=== PATIENT | female | born 1935 | race Caucasian/White ===

== ENCOUNTER → 2019-10-02 | Outpatient (CLI) | payer MEDICAID, SELFPAY | PROVIDERS: Family Provider Family Medicine; Visit Provider Internal Medicine Hematology & Oncology | DX: Z08 Encounter for follow-up examination after completed treatment for malignant neoplasm (principal); Z85.038 Personal history of other malignant neoplasm of large intestine; R91.8 Other nonspecific abnormal finding of lung field; Z90.49 Acquired absence of other specified parts of digestive tract; Z92.21 Personal history of antineoplastic chemotherapy | CPT/HCPCS: 80053; 82378; 82607; 82728; 83540; 83550; 85025; 85045; 99213 ==

== ENCOUNTER 2019-10-21 14:09 | Outpatient (RCR) | payer MEDICAID, SELFPAY ==
[2019-10-21 15:28] LABS: Ferritin 16 ng/mL (15-150); Iron 14 ug/dL (37-145); Total Iron Binding Capacity 344 mg/dL; Unsaturated Iron Binding 330 ug/dL (112-347)
[2019-10-21 15:43] LABS: Vitamin B12 454 pg/mL (232-1245)
[2019-10-21 15:48] LABS: Basophils # 0.1 10^3/uL (0.0-0.1); Basophils % 0.8 %; Eosinophils # 0.5 10^3/uL (0.0-0.8); Hematocrit 23.3 % (37.0-47.0); Lymphocytes % 17.2 %; Mean Corpuscular Hemoglobin 21.6 pg (28.0-34.0); Mean Corpuscular Volume 79.8 fL (81-99); Mean Platelet Volume 9.9 fL (7.4-10.4); Monocytes # 1.1 10^3/uL (0.2-0.9); Monocytes % 9.4 %; Neutrophils % 68.1 %; Nucleated Red Blood Cells % 0 %; Platelet Count 542 10^3/cmm (130-400); Red Blood Count 2.92 10^6/uL (4.1-5.3); Red Cell Distribution Width 15.3 % (12.1-15.1); White Blood Count 11.8 10^3/uL (4.0-10.0)
[2019-10-21 15:54] LABS: Hemoglobin 6.3 g/dL (11.5-15.3)
[2019-10-21 15:55] LABS: Folate Level 7.6 ng/mL (4.8-37.3)
[2019-10-22] VITALS (11 sets, daily range): BP systolic 90–122; BP diastolic 45–62; PULSE 67–76; RESP 18; TEMP 36.6–37.3; O2SAT 97–100
== END 2019-11-07 17:00 | disposition home or self-care (01) ==
LOC: ONCMED 14:09
PROVIDERS: Family Provider Family Medicine; Visit Provider Internal Medicine Hematology & Oncology
DX: D50.9 Iron deficiency anemia, unspecified (principal); Z85.038 Personal history of other malignant neoplasm of large intestine; Z90.49 Acquired absence of other specified parts of digestive tract; Z87.01 Personal history of pneumonia (recurrent); Z79.899 Other long term (current) drug therapy; Z79.82 Long term (current) use of aspirin
CPT/HCPCS: 36415; 36430; 82607; 82728; 82746; 83540; 83550; 85025; 85045

== ENCOUNTER 2019-11-06 05:40 | Outpatient (RCR) | payer MEDICAID, SELFPAY ==
--- NOTE | 2019-10-23 10:11 | ONC FU_ITS ---
Dr. Love follow up note Patient: Nayeli Ferreira Unit #: [id number]: 1935 Dicatated By: Rena Love M.D.Date of Visit:Oct 23, 2019 Onc Med Follow-up/Prog Note History of Present Illness: Mrs. Nayeli Ferreira is a 84-year-old female recently diagnosed with adenocarcinoma of ascending colon, underwent right hemicolectomy on 10/12/2017 final pathology report showed infiltrating adenocarcinoma low-grade, tumor penetrating through muscularis propria into serosal connective tissue, 3 out of 16 lymph nodes were removed showed metastatic disease surgical margins were clear. Patient tolerated procedure very well CT PET scan done on 11/10/2017 showed multiple tree in bud type infiltrates in the right lower lobe and right middle lobe of lung with mild FDG activity early metastatic disease cannot be excluded. chest x-ray done earlier Showed resolving pneumonia/pneumonitis offered her treatment with Xeloda. She was scheduled to start a reduced dose of 1000mg twice daily 14 out of 21 days for 8 cycles. which she Finished on 06/06/2018 She does live in a residual care assistance arrangement, but has excellent support. Follow-up CT PET scan done on 09/27/2019 showed FDG positive bilateral pulmonary nodules seen on prior studies on 07/27/2018 are resolved or nearly resolved. With a minimal or negligible FDG activity. Mediastinal lymph nodes are below early improved. The index node and right paratracheal area measures 1.1 cm with SUV of 4.5. Other mediastinal lymph nodes are unchanged in bilateral hilar, prevascular and subcarinal. These remain FDG positive, consistent with active malignancy. Right supraclavicular lymph node is unchanged with a minimal FDG uptake is likely reactive. Required blood transfusion for hemoglobin 6.3 g on 10/21/2019. Came for follow-up, denies any specific complaint, tolerated blood transfusion well without any problem. Fever or chills no nausea vomiting no chest pain no shortness of breath no melena or hematochezia patient is on oral iron. No abdominal pain, no jaundice. Medications: Albuterol Sulfate HFA 1 (108 (90 base) mcg/act) Aerosol, solution Inhalation daily, Aspirin 1 (81 mg) Tablet Oral daily, Carvedilol 1 (3.125 mg) Tablet Oral b.i.d., Cetirizine HCl 1 (10 mg) Tablet Oral at bedtime, Colace 1 (100 mg) Capsule Oral b.i.d., Flonase 1 spray(s) (of 50 mcg/act) Suspension Nasal daily, Levothyroxine Sodium 1 (75 mcg) Tablet Oral daily, Simvastatin 1 (20 mg) Tablet Oral at bedtime, Vitamin C 1 Tablet, chewable Oral daily PRN Allergies: No Known Allergies. Review of Systems: Review of Systems is not available for this patient. Vital Signs: Performed on Oct 23, 2019 09:41 Height - 52.00 in Weight - 130.6 lbs (HIGH) BSA - 1.40 sq.m BMI - 33.96 (HIGH) Temperature - 98.4 F Pulse - 80 /min Respiration - 20 /min BP - 119/60 mm(hg) O2 Sat - 98 % Pain - 0 Performance Status: 1 - No physically strenuous activity, but ambulatory and able to carry out light or sedentary work (e.g. office work, light house work). (ECOG) Physical Examination: ENMT - No oral exudates, ulcers, masses, thrush or mucositis. Oropharynx clear. Tongue normal, Respiratory - Lungs are clear to auscultation without rhonchi or wheezing, Cardiovascular - Regular rate and rhythm of heart, Abdomen - Non-tender, non-distended, Good bowel sounds. No guarding or rebound tenderness. No pulsatile masses, Extremities - no edema. Lab/Imaging: Test performed on Oct 21, 2019 09:45 Ferritin 16 ng/mL Folate 7.6 ng/mL Vitamin B12 454 pg/mL % Iron Saturation 4.0 % Iron, Total 14 mcg/dL TIBC 344 mcg/dL Reticulocyte Count 2.6300 % WBC 11.8 10^9/L RBC 2.92 10^12/L HGB 6.3 g/dL HCT 23.3 % MCV 79.8 fl MCH 21.6 pg MCHC 27.0 g/dL RDW 15.3 % Platelet Count 542 10^9/L MPV 9.9 fL Neutrophils (Gran) 8.0 10^9/L Lymphocytes 2.0 10^9/L Monocytes 1.1 10^9/L Eosinophils 0.5 10^9/L Basophils 0.1 10^9/L Neutrophil % 4.0 % Manual Lymphocytes 17.2 % Manual Monocytes 9.4 % Manual Eosinophils 4.0 % Manual Basophils 0.8 % NRBCs 0.0 /100 WBC Test performed on Oct 02, 2019 12:29 Sodium 137 mmol/L Potassium 4.3 mmol/L Chloride 102 mmol/L CO2 21 mmol/L UIBC 307 ug/dL Anion Gap 18.3 BUN 20 mg/dL Creatinine 1.0 mg/dL Cr Clearance (Est) 37.4800 mL/min Glucose 132 mg/dl Calcium 9.0 mg/dL Protein, Total 6.4 g/dL Albumin 4.1 g/dL Globulin 2.3 gm/dL Bilirubin, Total 0.2 mg/dL ALT (SGPT) 7 U/L AST (SGOT) 20 U/L Alkaline Phosphatase 90 U/L Lymphocyte % 20.3 % Monocyte % 9.9 % Eosinophil % 3.7 % Basophils % 0.8 % CEA 2.1 ng/mL Impression: Infiltrating adenocarcinoma involving ascending colon per colonoscopy done on 09/28/2017 status post right hemicolectomy done on 10/12/2017 final path report showed infiltrating adenocarcinoma, low-grade tumor penetrating through muscularis propria into serosal connective tissue 7.5 x 6.5 x 1.5 cm T3 Positive small lymphovascular space invasion. Clear surgical margins 3 lymph node out of 16 removed were positive for metastatic disease N1 MSI/MMRD status showed normal expression CT scan of chest abdomen pelvis done on 09/26/2017 showed multilobular nodular airspace disease suspicious for metastasis. Hepatic and splenic granulomatous CT PET scan done on 11/10/2017 showed multiple tree in bud type infiltrates in the right lower lobe and right middle lobe of lung with mild FDG activity early metastatic disease cannot be excluded but patient has history of resolving pneumonia per chest x-ray Discussed with patient regarding her labs and CT PET scan and CBC CMP within normal limit CEA is 0.9 Clinically, she is doing reasonably well considering her age and comorbid conditions. Her CT PET scan shows abnormality in right lower and middle lobe of lung and chest x-ray done earlier showed resolving pneumonia/pneumonitis said these abnormality could be due to that. And her MSI/MMR D status shows normal expression so r adjuvant therapy with oral Xeloda was offerd on 12/07/17 We will also modify her dose as per her performance status, advanced age and comorbid condition. we will prescribe Xeloda 750 mg/m??? by mouth twice a day for 2 weeks on 1 week off and repeat cycle every 21 days ???8 cycles. Started adjuvant chemotherapy with oral Xeloda on 12/07/2017 and plan to give her 2 weeks on 1 week off ???8 cycle And finished her adjuvant chemotherapy on 06/06/2018 Follow-up CT PET scan done on 07/27/2018 showed now more definitive hypermetabolic bilateral pulmonary nodules, strongly consistent with metastatic disease. There are more prominent in the right upper lobe, right lower lobe and left lower lobe , additionally, there is a malignant activity in multiple mediastinal lymph nodes, inferior right peritracheal territory, bilateral hilar, subcarinal. The index node in the right peritracheal territory -1.5 cm with SUV of 6.5. The right supraclavicular lymph node is slightly more prominent than on previous study but does not shows FDG activity. Status post mediastinoscopy done on 09/09/2018 mediastinal lymph node biopsy shows no evidence of malignancy negative for fungal or acid-fast bacteria. Plan: Discussed with patient regarding her labs which showed iron deficiency as iron saturation is 4 ferritin 16 folic acid 7.6 iron 14 TIBC 344 B12 454 Clinically patient has iron deficiency anemia which could be due to chronic blood loss of malabsorption patient on oral iron supplements. As patient has history of colon cancer, we will consider referred for colonoscopy/EGD to rule out chronic blood loss from GI tract and also consider discontinue oral iron and consider parenteral iron Injectafer 750 mg IV weekly ???2 followed by CBC and iron studies in one month. As her recently done CT PET scan shows no recurrence of disease . Signed By: Rena Love M.D. <<Signature on File>>
[2019-11-06] MEDS: sodium chloride 0.9% 100 ML 300 ML (11:39)
== END 2019-11-07 23:59 | disposition home or self-care (01) ==
LOC: ONCMED 05:40
PROVIDERS: Family Provider Family Medicine; Visit Provider Internal Medicine Hematology & Oncology
DX: D50.9 Iron deficiency anemia, unspecified (principal); Z79.82 Long term (current) use of aspirin; Z85.038 Personal history of other malignant neoplasm of large intestine; Z90.49 Acquired absence of other specified parts of digestive tract; Z87.01 Personal history of pneumonia (recurrent); Z92.21 Personal history of antineoplastic chemotherapy
CPT/HCPCS: 86850; 86900; 96365; G0463; J1439; P9016

== ENCOUNTER 2019-11-13 06:17 | Outpatient (RCR) | payer MEDICAID, SELFPAY | END 2019-12-06 23:59 | disposition home or self-care (01) | LOC: ONCMED 06:17 | PROVIDERS: Family Provider Family Medicine; Visit Provider Internal Medicine Hematology & Oncology | DX: D50.9 Iron deficiency anemia, unspecified (principal) | CPT/HCPCS: 96365 ==

== ENCOUNTER 2019-11-20 07:21 | Outpatient (CLI) | payer MEDICAID, SELFPAY ==
--- NOTE | 2019-11-20 07:27 | MM_ITS ---
WS: [id number] BILATERAL DIGITAL SCREENING MAMMOGRAPHY WITH CAD CLINICAL INFORMATION: SCREENING HISTORY: Screening mammogram. No current complaints. COMPARISON: July 04, 2018 TECHNIQUE: Bilateral CC and MLO views. FINDINGS: Scattered fibroglandular densities bilaterally. Vascular calcification. Stable punctate calcification s. Bilateral lateral nodular densities are unchanged. No suspicious focal mass, asymmetry, calcificat ions, or architectural distortion. No evidence of malignancy. MM/[id number] IMPRESSION: BI-RADS: 2-Benign FOLLOW UP: 1 Year Follow-up Recommend return to annual screening mammography.
== END 2019-11-20 07:22 | disposition home or self-care (01) ==
LOC: RADSHAW 07:24
PROVIDERS: Family Provider Family Medicine; PCP Family Medicine; Visit Provider Family Medicine
DX: Z12.31 Encounter for screening mammogram for malignant neoplasm of breast (principal)
CPT/HCPCS: 77067

== ENCOUNTER 2019-12-18 05:58 | Outpatient (RCR) | payer MEDICAID, SELFPAY ==
[2019-12-17 17:08] LABS: Basophils # 0.1 10^3/uL (0.0-0.1); Basophils % 0.5 %; Eosinophils # 0.2 10^3/uL (0.0-0.8); Eosinophils % 1.8 %; Hematocrit 34.1 % (37.0-47.0); Hemoglobin 10.3 g/dL (11.5-15.3); Lymphocytes # 2.1 10^3/uL (0.8-4.8); Lymphocytes % 15.7 %; Mean Corpuscular HGB Conc 30.2 g/dL (30.0-36.0); Mean Corpuscular Volume 92.7 fL (81-99); Mean Platelet Volume 9.9 fL (7.4-10.4); Monocytes # 1.4 10^3/uL (0.2-0.9); Monocytes % 10.3 %; Neutrophils # 9.3 10^3/uL (1.8-7.7); Neutrophils % 71.2 %; Nucleated Red Blood Cells % 0 %; Platelet Count 495 10^3/cmm (130-400); Red Blood Count 3.68 10^6/uL (4.1-5.3); Red Cell Distribution Width 19.9 % (12.1-15.1); White Blood Count 13.1 10^3/uL (4.0-10.0)
[2019-12-17 17:12] LABS: Ferritin 709 ng/mL (15-150); Iron 25 ug/dL (37-145); Percent Saturation 19.6 % (20-50); Total Iron Binding Capacity 127 mcg/dl; Unsaturated Iron Binding 102 ug/dL (112-347)
== END 2020-01-06 23:59 | disposition home or self-care (01) ==
LOC: ONCMED 05:58
PROVIDERS: Family Provider Family Medicine; PCP Family Medicine; Visit Provider Internal Medicine Hematology & Oncology
DX: D50.9 Iron deficiency anemia, unspecified (principal)
CPT/HCPCS: 82728; 83540; 83550; 85025

== ENCOUNTER 2020-05-06 09:22 | Outpatient (CLI) | payer MEDICAID, SELFPAY ==
[2020-05-06 08:08] LABS: Basophils # 0.1 10^3/uL (0.0-0.1); Basophils % 0.9 %; Eosinophils # 0.5 10^3/uL (0.0-0.8); Eosinophils % 5.1 %; Lymphocytes # 1.5 10^3/uL (0.8-4.8); Lymphocytes % 15.3 %; Mean Corpuscular HGB Conc 25.2 g/dL (30.0-36.0); Mean Corpuscular Hemoglobin 18.1 pg (28.0-34.0); Mean Corpuscular Volume 71.7 fL (81-99); Mean Platelet Volume 9.5 fL (7.4-10.4); Monocytes # 0.8 10^3/uL (0.2-0.9); Monocytes % 7.7 %; Neutrophils # 6.92 10^3/uL (1.8-7.7); Neutrophils % 70.6 %; Nucleated Red Blood Cells % 0 %; Platelet Count 553 10^3/cmm (130-400); Red Blood Count 2.93 10^6/uL (4.1-5.3); Red Cell Distribution Width 17.2 % (12.1-15.1); White Blood Count 9.8 10^3/uL (4.0-10.0)
[2020-05-06 08:15] LABS: Hemoglobin 5.3 g/dL (11.5-15.3)
[2020-05-06 08:23] LABS: Ferritin 12 ng/mL (15-150); Iron 10 ug/dL (37-145); Percent Saturation 2.9 % (20-50); Total Iron Binding Capacity 335 mcg/dl; Unsaturated Iron Binding 325 ug/dL (112-347)
[2020-05-06 12:20] VITALS: BP 102/64; PULSE 77; RESP 18; TEMP 36.6; O2SAT 97
[2020-05-06] MEDS: acetaminophen 325 mg Tablet 650 MG PO (12:20)
[2020-05-06] MEDS: sodium chloride 0.9% 250 ML 999 ML IV (12:20)
[2020-05-06 15:00] VITALS: BP 119/60; PULSE 79; RESP 18; TEMP 36.8; O2SAT 97
[2020-05-06] MEDS: diphenhydrAMINE 25 mg Capsule PO (17:52)
[2020-05-06] MEDS: FUROsemide 10 mg/mL SDV 2mL 20 MG IV (17:53)
[2020-05-06] MEDS: sodium chloride 0.9% (100 ml) 100 ML 250 ML (17:54)
--- NOTE | 2020-05-07 13:01 | ONC FU_ITS ---
Dr. Love follow up note Patient: Nayeli Ferreira Unit #: [id number]: 1935 Dicatated By: Rena Love M.D.Date of Visit:May 06, 2020 Onc Med Follow-up/Prog Note History of Present Illness: Mrs. Nayeli Ferreira is a 84-year-old female recently diagnosed with adenocarcinoma of ascending colon, underwent right hemicolectomy on 10/12/2017 final pathology report showed infiltrating adenocarcinoma low-grade, tumor penetrating through muscularis propria into serosal connective tissue, 3 out of 16 lymph nodes were removed showed metastatic disease surgical margins were clear. Patient tolerated procedure very well CT PET scan done on 11/10/2017 showed multiple tree in bud type infiltrates in the right lower lobe and right middle lobe of lung with mild FDG activity early metastatic disease cannot be excluded. chest x-ray done earlier Showed resolving pneumonia/pneumonitis offered her treatment with Xeloda. She was scheduled to start a reduced dose of 1000mg twice daily 14 out of 21 days for 8 cycles. which she Finished on 06/06/2018 She does live in a residual care assistance arrangement, but has excellent support. Follow-up CT PET scan done on 09/27/2019 showed FDG positive bilateral pulmonary nodules seen on prior studies on 07/27/2018 are resolved or nearly resolved. With a minimal or negligible FDG activity. Mediastinal lymph nodes are below early improved. The index node and right paratracheal area measures 1.1 cm with SUV of 4.5. Other mediastinal lymph nodes are unchanged in bilateral hilar, prevascular and subcarinal. These remain FDG positive, consistent with active malignancy. Right supraclavicular lymph node is unchanged with a minimal FDG uptake is likely reactive. Required blood transfusion for hemoglobin 6.3 g on 10/21/2019. Came for follow-up, denies any specific complaints except generalized weakness and fatigue but no melena or hematochezia, no hemoptysis or hematemesis, no jaundice, no abdominal pain, no shortness of breath or palpitation at rest Medications: Albuterol Sulfate HFA 1 (108 (90 base) mcg/act) Aerosol, solution Inhalation daily, Aspirin 1 (81 mg) Tablet Oral daily, Carvedilol 1 (3.125 mg) Tablet Oral b.i.d., Cetirizine HCl 1 (10 mg) Tablet Oral at bedtime, Colace 1 (100 mg) Capsule Oral b.i.d., Flonase 1 [place](s) (of 50 mcg/act) Suspension Nasal daily, Levothyroxine Sodium 1 (75 mcg) Tablet Oral daily, Simvastatin 1 (20 mg) Tablet Oral at bedtime, Vitamin C 1 Tablet, chewable Oral daily PRN Allergies: No Known Allergies. Review of Systems: Review of Systems is not available for this patient. Vital Signs: Vitals are not available for this patient. Performance Status: 1 - No physically strenuous activity, but ambulatory and able to carry out light or sedentary work (e.g. office work, light house work). (ECOG) Physical Examination: ENMT - No mouth sores, no thrush, no jaundice, Respiratory - Lungs are clear, Cardiovascular - Regular rate and rhythm of heart, Abdomen - Soft, bowel sounds present, Extremities - No visible edema. Lab/Imaging: Test performed on Dec 17, 2019 15:15 Ferritin 709 ng/mL Iron 25 mcg/dL Iron Binding Capacity (TIBC) 127 mcg/dl % Iron Saturation 19.6 % UIBC 102 mcg/dL WBC 13.1 10 3/uL RBC 3.68 10 6/uL HGB 10.3 g/dL HCT 34.1 % MCV 92.7 fL MCH 28.0 pg MCHC 30.2 g/dL RDW 19.9 % Platelet Count 495 10 3/cmm MPV 9.9 fL Neutrophils 9.3 10 3/uL Lymphocytes 2.1 10 3/uL Monocytes 1.4 10 3/uL Eosinophils 0.2 10 3/uL Basophils 0.1 10 3/uL Neutrophil % 71.2 % Lymphocyte % 15.7 % Monocyte % 10.3 % Eosinophil % 1.8 % Basophils % 0.5 % Impression: Infiltrating adenocarcinoma involving ascending colon per colonoscopy done on 09/28/2017 status post right hemicolectomy done on 10/12/2017 final path report showed infiltrating adenocarcinoma, low-grade tumor penetrating through muscularis propria into serosal connective tissue 7.5 x 6.5 x 1.5 cm T3 Positive small lymphovascular space invasion. Clear surgical margins 3 lymph node out of 16 removed were positive for metastatic disease N1 MSI/MMRD status showed normal expression CT scan of chest abdomen pelvis done on 09/26/2017 showed multilobular nodular airspace disease suspicious for metastasis. Hepatic and splenic granulomatous CT PET scan done on 11/10/2017 showed multiple tree in bud type infiltrates in the right lower lobe and right middle lobe of lung with mild FDG activity early metastatic disease cannot be excluded but patient has history of resolving pneumonia per chest x-ray Discussed with patient regarding her labs and CT PET scan and CBC CMP within normal limit CEA is 0.9 Clinically, she is doing reasonably well considering her age and comorbid conditions. Her CT PET scan shows abnormality in right lower and middle lobe of lung and chest x-ray done earlier showed resolving pneumonia/pneumonitis said these abnormality could be due to that. And her MSI/MMR D status shows normal expression so r adjuvant therapy with oral Xeloda was offerd on 12/07/17 We will also modify her dose as per her performance status, advanced age and comorbid condition. we will prescribe Xeloda 750 mg/m??? by mouth twice a day for 2 weeks on 1 week off and repeat cycle every 21 days ???8 cycles. Started adjuvant chemotherapy with oral Xeloda on 12/07/2017 and plan to give her 2 weeks on 1 week off ???8 cycle And finished her adjuvant chemotherapy on 06/06/2018 Follow-up CT PET scan done on 07/27/2018 showed now more definitive hypermetabolic bilateral pulmonary nodules, strongly consistent with metastatic disease. There are more prominent in the right upper lobe, right lower lobe and left lower lobe , additionally, there is a malignant activity in multiple mediastinal lymph nodes, inferior right peritracheal territory, bilateral hilar, subcarinal. The index node in the right peritracheal territory -1.5 cm with SUV of 6.5. The right supraclavicular lymph node is slightly more prominent than on previous study but does not shows FDG activity. Status post mediastinoscopy done on 09/09/2018 mediastinal lymph node biopsy shows no evidence of malignancy negative for fungal or acid-fast bacteria. Plan: Discussed with patient and her caregiver Scott Aguilar regarding her labs white blood count 9.8 hemoglobin 5.3 g hematocrit 21 MCV 71.7 and platelets 553,000 iron saturation 2.9 ferritin 12 iron 10 TIBC 335 Clinically, patient has progressive iron deficiency anemia she was treated with parenteral iron on November 06 and November 13, 2019 with good response, patient came to clinic with his progressive anemia and hemoglobin is 5.3 g compared to 10.3 g on December 17, 2019, we will proceed with 2 units of packed RBC and also consider evaluation to rule out GI source of blood loss and other possibility could be malabsorption as patient is on oral iron. Case was discussed with Scott Aguilar her power of consumer attorney, he will make his decision regarding colonoscopy, after discussing with her PMD and nursing at care home. Patient will return to clinic in 2 weeks with CBC and consider parenteral iron, case was discussed with Ms. Ferreira also and she agreed for colonoscopy/EGD procedure, will refer her for that. Signed By: Rena Love M.D. <<Signature on File>>
== END 2020-05-06 09:23 | disposition home or self-care (01) ==
LOC: ONCMED 09:23
PROVIDERS: PCP Family Medicine; Visit Provider Internal Medicine Hematology & Oncology
DX: C18.2 Malignant neoplasm of ascending colon (principal); C77.2 Secondary and unspecified malignant neoplasm of intra-abdominal lymph nodes; D50.9 Iron deficiency anemia, unspecified; R91.8 Other nonspecific abnormal finding of lung field; Z92.21 Personal history of antineoplastic chemotherapy
CPT/HCPCS: 36415; 36430; 82728; 83540; 83550; 85025; 86850; 86900; 86920; 99214; J1940; J7050; P9016

== ENCOUNTER 2020-05-24 12:54 | Emergency (ER) | payer MEDICAID, SELFPAY ==
[2020-05-24 12:55] VITALS: BP 111/48; PULSE 83; RESP 18; TEMP 36.7; O2SAT 96; BMI 27.3
--- NOTE | 2020-05-24 13:20 | ED_ITS ---
HPI - Abdominal Pain General: Chief Complaint: Abdominal Pain Stated Complaint: ABD PAIN Time Seen by Provider: 05/24/20 13:00 Source: patient Mode of arrival: EMS Limitations: no limitations History of Present Illness: HPI narrative: Patient is an 85-year-old female who presents to ED today via EMS from [facility] for complaint of right-sided abdominal pain that began yesterday. Patient tells me she is not having any changes in her bowel movements. She has not had any vomiting. She has not been running fevers. No urinary symptoms. She states pain has been c onstant upon onset and has not found any worsening or alleviating factors to her discomfort. Patient tells me approximately 2 years ago she was diagnosed with colon cancer (adenocarcinoma of ascending colon). She tells me she has never had any previous abdominal surgeries however records show that patient has had a right hemicolectomy. Patient was recently seen by oncology Dr. Love on 05/07. Hemoglobin at that time was 5.3. She was given 2 units PRBCs. They had discussed at that time possibly undergoing colonoscopy to look for GI source of blood loss. Patient does have a history of iron deficiency anemia and looking at previous labs, is chronically anemic. MD elicited complaint: abdominal pain Pertinent past history: other (colon cancer) Onset (ago): hour(s) Pain Consistency: constant Location: RLQ Radiation: none Migration to: no migration Exacerbating factors: nothing Relieving factors: nothing Associated Symptoms: Denies change in bowel habits, change in stool character, chills, coffee ground emesis, constipation, diarrhea, dysuria, fever(s), heartburn, hematochezia, hematemesis, melena, nausea and vomiting Review of Systems Const: Denies: fever(s), chills, body aches, change in appetite, change in weight, fatigue or malaise Card: Denies: chest pain Resp: Denies: dyspnea GI: Reports: abdominal pain; Denies: nausea, vomiting, hematemesis, coffee ground emesis, heartburn, diar olga, constipation, change in bowel habits, pain on defecation, change in stool character, hematochezia or melena : Denies: flank pain, difficulty voiding, dysuria, urinary frequency, urinary urgency or urinary hesitancy Musc: Denies: neck pain or back pain Skin/Breast: Denies: rash Neuro: Denies: headache(s), numbness in extremities, weakness in extremities or sensory changes Physical Exam Const: COMMON NORMALS: no acute distress, patient oriented x3, no limitations and alert ORIENTATION/CONSCIOUSNESS: Yes oriented to person HENMT: COMMON NORMALS: normocephalic and atraumatic HEAD & SCALP: normocephalic and atraumatic Resp: COMMON NORMALS: normal respiratory effort and clear to auscultation bilaterally AUSCULTATION: clear to auscultation bilaterally Cardio: COMMON NORMALS: regular rate and regular rhythm RATE: regular rate RHYTHM: regular rhythm GI: COMMON NORMALS: Normal to inspection, nondistended, normoactive bowel sounds present, Soft to palpation, No hepatosplenomegaly present and no masses PALPATION: Yes Soft to palpation, Yes Tenderness to palpation present (GI) Details: RLQ and Yes No hepatosplenomegaly present RECTAL EXAM: heme positive stool : COMMON NORMALS: Yes no CVA tenderness BLADDER/KIDNEY EXAM: Yes no CVA tenderness Back/Pelvis: COMMON NORMALS: no CVA tenderness Extremity: COMMON NORMALS: normal to inspection GENERAL: Yes normal exam except as noted Neuro: COMMON NORMALS: patient oriented x3 SENSORIUM/ORIENTATION: Yes alert and Yes oriented to person Skin: COMMON NORMALS: no rashes or lesions noted GENERAL SKIN EXAM: no rashes or lesions noted Course Consultations: Consultation #1: Dr. Nivia Davis, agrees with plan for patient for frequent blood draws through [facility] and sooner appointment with general surgery Consultation #2: I also spoke to Scott Aguilar who is pts power of deputy prosecuting attorney who stated the [facility] was working on getting patient set up with a colonoscopy referral. Vital Signs: Vital signs: Vital Signs Temperature 98.0 F 05/24/20 12:55 Pulse Rate 80 05/24/20 16:07 Respiratory Rate 16 05/24/20 16:07 Blood Pressure 112/51 05/24/20 16:07 Pulse Oximetry 98 05/24/20 16:07 MDM - Abdominal Pain MDM Narrative: Medical decision making narrative: Pts H/H today is 8.5/30.7. Again, looking at previous labs she is chronically anemic and this does not appear far from her overall baseline. Her hemoccult is positive here. I have spoken to case management who told me that patient currently has an appointment on 06/[address] Kee for evaluation for a colonoscopy. She will call over to their office and try to get patient a sooner appointment. I spoke to Dr. Cisneros who does not feel patient needs to come into the hospital at this time. We have came up with a plan for patient to have her labs redrawn at the [facility] every 24-48 hours for close observation of her hemoglobin. I have spoken to the physician for [place], Dr. Nivia Davis, who agrees with this plan. Patient CT scan does show a new lesion in her liver which statistically is metastatic. She will need follow-up with her oncologist Dr. Love for this. Lab Data: Labs: Lab Results 05/24/20 05/24/20 05/24/20 Range/Units 13:30 13:30 15:15 WBC 12.6 H (4.0-10.0) 10^3/ uL RBC 3.83 L (4.1-5.3) 10^6/u L Hgb 8.5 L (11.5-15.3) g/dL Hct 30.7 L (37.0-47.0) % MCV 80.2 L (81-99) fL MCH 22.2 L (28.0-34.0) pg MCHC 27.7 L (30.0-36.0) g/dL RDW 23.9 H (12.1-15.1) % Plt Count 518 H (130-400) 10^3/c mm MPV 9.2 (7.4-10.4) fL Neut % (Auto) 74.8 % Lymph % (Auto) 12.9 % Hayes % (Auto) 10.2 % Eos % (Auto) 1.3 % Baso % (Auto) 0.6 % Neut # (Auto) 9.44 H (1.8-7.7) 10^3/u L Lymph # (Auto) 1.6 (0.8-4.8) 10^3/u L Hayes # (Auto) 1.3 H (0.2-0.9) 10^3/u L Eos # (Auto) 0.2 (0.0-0.8) 10^3/u L Baso # (Auto) 0.1 (0.0-0.1) 10^3/u L Nucleated RBC % (a uto) 0 % Nucleated RBCs # 0.0 /100WBC Sodium 135 L (136-145) mmol/L Potassium 4.4 (3.5-5.1) mmol/L Chloride 103 (98-107) mmol/L Carbon Dioxide 23 (22-29) mmol/L Anion Gap 13.4 (5-19) BUN 21 (8-23) mg/dL Creatinine 0.9 (0.5-0.9) mg/dL GFR Calculation Not Reportable Glucose 139 H (65-115) mg/dL Calculated Osmolal ity 279 L (285-295) mOsm/k g Calcium 8.5 (8.5-10.5) mg/dL Total Bilirubin 0.4 (0.15-1.2) mg/dL AST 26 (0-32) U/L ALT 8 (0-33) U/L Alkaline Phosphata se 87 (35-105) IU/L Total Protein 6.4 L (6.6-8.7) g/dL Albumin 2.9 L (3.5-5.2) g/dL Globulin 3.5 (1.3-4.6) g/dL Lipase 27 (13-60) U/L Urine Color Yellow (Yellow) Urine Appearance Clear (CLEAR) Urine pH 6.5 (5-7) Ur Specific Gravit y 1.015 (1.005-1.030) Urine Protein Neg (Negative) Urine Glucose (UA) Norm (Normal) Urine Ketones Negative (Negative) Urine Blood Neg (Negative) Urine Nitrate Negative (Negative) Urine Bilirubin Neg (NEGATIVE) Urine Urobilinogen Norm (Negative) mg/dL Ur Leukocyte Lesley ase Negative (Negative) Imaging Data ^: CT Abd/Pel: Radiologist's impression: [address] [place] [address] CT Scan Report Signed Patient: Nayeli Ferreira Unit #: [id number] : 1935 Age/Sex: 85 / F ADM Date: 05/24/20 Loc: ER Room/Bed: Attending Dr: Ordering Provider/Ordering MD: Tonia Day Date of Service: 05/24/20 Procedure(s): CT abdomen pelvis w con* [id number] Accession Number(s): [id number] Report Number: [id number] WS: [id number] CT ABDOMEN AND PELVIS WITH CONTRAST HISTORY: R sided abdominal pain; blood in stool; hx colon CA TECHNIQUE: Imaging performed of the abdomen and pelvis with IV contrast. Single phase imaging of the abdomen. Coronal and sagittal reformats are submitted. All CT scans at [facility] use at least one of these dose optimization techniques: automated exposure control; mA and/or kV adjustment per patient size (includes targeted exams where dose is matched to clinical indication); or iterative reconstruction. IV CONTRAST: Omnipaque 300; 95 mL IV. Oral contrast: No DLP: 305.2 mGy.cm COMPARISON: 09/18/2018 and 09/27/2019 Lower thorax: Chronic emphysematous changes at the lung base mild enlargement the cardiac chambers. Small hiatal hernia. Liver/biliary system: Liver is enlarged. There is a new lobulated hypoechoic mass in the inferior posterior RIGHT lobe extending over length of 5.2 cm x 4.3 cm. Mild expansion of the hepatic capsule . No intrahepatic bile duct dilatation. Gallbladder: Gallbladder is contracted and contains stones. Mild diffuse gallbladder wall thickening. Pancreas: Normal. Spleen: Granuloma, normal size. Adrenal glands: Normal. Right kidney: Normal. Left kidney: Lobulated simple cyst upper pole measures 3.7 x 3.5 cm. No obstruction. Aorta: Moderate atherosclerosis of aorta. Gastric artery arises from the arch. Normal variant. Lymphadenopathy: None. Free fluid: None. GI tract: Anastomotic sutures in the mid transverse colon. There is mild thickening of the adjacent to the anastomosis. There is a portion of colon extending through the large ventral abdominal wall hernia but not resulting in obstruction. The portion extending into the hernia could be a large diverticulum. The bowel wall thickening at the anastomotic sutures very similar to the prior PET/CT of 09/27/2019 which was negative for malignancy. There are numerous diverticula in the distal colon. Abdominal wall: Large ventral abdominal wall hernia. Herniating loop of colon or large diverticulum with no obstruction. Pelvis: Normal bladder. Atrophic uterus as expected. Bones: No osteoblastic or osteolytic bone disease. CT/CT abdomen pelvis w con* [id number] IMPRESSION: 1. New lesion in the RIGHT hepatic lobe which is most statistically a metastatic lesion measuring 5.2 x 4.3 cm. 2. There is mild mucosal thickening at the anastomotic suture line in the transverse colon which is similar to the PET/CT of 09/27/2019. 3. No ascites or adenopathy. 4. Lithiasis in a contracted gallbladder. 5. Extensive diverticular disease distal colon. Dictated By: Lizzie Dasilva DO Signed By: Lizzie Dasilva DO Signed Date/Time: 05/24/20 1506 DD/ 1452 Discharge Plan Discharge Patient Disposition: [facility] Clinical Impression: Chronic anemia, History of colon cancer, Hepatic lesion GI bleed Qualifiers: GI bleed type/associated pathology: unspecified gastrointestinal hemorrhage type Qualified Code(s): K92.2 - Gastrointestinal hemorrhage, unspecified Condition: Stable Prescriptions: No Action Tylenol 325 mg Tablet 325 mg PO QID PRN (Reason: Pain) RF: 0 cetirizine 10 mg Tablet 5 mg PO DAILY RF: 0 docusate calcium 240 mg Capsule 240 mg PO BID RF: 0 Aspirin Low Dose 81 mg Tablet,Delayed Release (Dr/Ec) 81 mg PO DAILY RF: 0 carvedilol 3.125 mg Tablet 3.125 mg PO BID RF: 0 levothyroxine 75 mcg Tablet 75 mcg PO DAILY RF: 0 simvastatin 20 mg Tablet 20 mg PO QPM RF: 0 fluticasone prp-sod.chl,bicarb 50 mcg- 0.9 % Kit,[place] Suspension And [place] See Rx Instructions .ROUTE .COMPLEX RF: 0 C-500 500 mg Tablet,Chewable 500 mg PO DAILY PRN (Reason: unknown) RF: 0 albuterol sulfate 90 mcg/actuation Hfa Aerosol Inhaler 1 puff INHALATION QID PRN (Reason: Shortness Of Breath) RF: 0 Robafen DM Cough 10 - 100 mg PO Q6H PRN (Reason: Cough) RF: 0 Discharge Orders: Discharge Order (Routine); Ordered 05/24/20 Ordered By: Tonia Day Referrals: Gerson Kee MD [Physician] - Car Gabriel Jr, MD [Primary Care Provider] - Activity Restrictions/Additional Instructions: As discussed patient needs to have her hemoglobin repeated every 24-48 hours over the next 3 to 4 days to evaluate for blood loss. Patient needs to return to the ED immediately for any obviously bloody stools. She currently has an appointment with Dr. Kee to evaluate for the need for a colonoscopy on 06/02. Our therapeutic case manager is working on getting her a sooner appointment. She will need to follow-up with her oncologist Dr. Love for her new lesion on her liver. I have spoken to Dr. Davis who agrees with plan for patient. Coding Level of Care Code ED Retail Salesworker for Chg Fwd Exam Comprehensive
[2020-05-24 13:35] LABS: Basophils # 0.1 10^3/uL (0.0-0.1); Basophils % 0.6 %; Eosinophils # 0.2 10^3/uL (0.0-0.8); Eosinophils % 1.3 %; Hematocrit 30.7 % (37.0-47.0); Hemoglobin 8.5 g/dL (11.5-15.3); Lymphocytes # 1.6 10^3/uL (0.8-4.8); Lymphocytes % 12.9 %; Mean Corpuscular HGB Conc 27.7 g/dL (30.0-36.0); Mean Corpuscular Hemoglobin 22.2 pg (28.0-34.0); Mean Corpuscular Volume 80.2 fL (81-99); Mean Platelet Volume 9.2 fL (7.4-10.4); Monocytes # 1.3 10^3/uL (0.2-0.9); Monocytes % 10.2 %; Neutrophils # 9.44 10^3/uL (1.8-7.7); Neutrophils % 74.8 %; Nucleated Red Blood Cells % 0 %; Platelet Count 518 10^3/cmm (130-400); Red Blood Count 3.83 10^6/uL (4.1-5.3); Red Cell Distribution Width 23.9 % (12.1-15.1); White Blood Count 12.6 10^3/uL (4.0-10.0)
--- NOTE | 2020-05-24 13:37 | CT_ITS ---
WS: [id number] CT ABDOMEN AND PELVIS WITH CONTRAST HISTORY: R sided abdominal pain; blood in stool; hx colon CA TECHNIQUE: Imaging performed of the abdomen and pelvis with IV contrast. Single phase imaging of the abdomen. Coronal and sagittal reformats are submitted. All CT scans at [facility] use at least one of these dose optimization techniques: automated exposure control; mA and/or kV adjustment per patient size (includes targeted exams where dose is matched to clinical indication); or iterativ e reconstruction. IV CONTRAST: Omnipaque 300; 95 mL IV. Oral contrast: No DLP: 305.2 mGy.cm COMPARISON: 09/18/2018 and 09/27/2019 Lower thorax: Chronic emphysematous changes at the lung base mild enlargement the cardiac chambers. S mall hiatal hernia. Liver/biliary system: Liver is enlarged. There is a new lobulated hypoechoic mass in the inferior pos terior RIGHT lobe extending over length of 5.2 cm x 4.3 cm. Mild expansion of the hepatic capsule. No intrahepatic bile duct dilatation. Gallbladder: Gallbladder is contracted and contains stones. Mild diffuse gallbladder wall thickening. Pancreas: Normal. Spleen: Granuloma, normal size. Adrenal glands: Normal. Right kidney: Normal. Left kidney: Lobulated simple cyst upper pole measures 3.7 x 3.5 cm. No obstruction. Aorta: Moderate atherosclerosis of aorta. Gastric artery arises from the arch. Normal variant. Lymphadenopathy: None. Free fluid: None. GI tract: Anastomotic sutures in the mid transverse colon. There is mild thickening of the adjacent t o the anastomosis. There is a portion of colon extending through the large ventral abdominal wall her ever but not resulting in obstruction. The portion extending into the hernia could be a large divertic ulum. The bowel wall thickening at the anastomotic sutures very similar to the prior PET/CT of 2018 which was negative for malignancy. There are numerous diverticula in the distal colon. Abdominal wall: Large ventral abdominal wall hernia. Herniating loop of colon or large diverticulum w ith no obstruction. Pelvis: Normal bladder. Atrophic uterus as expected. Bones: No osteoblastic or osteolytic bone disease. CT/CT abdomen pelvis w con* [id number] IMPRESSION: 1. New lesion in the RIGHT hepatic lobe which is most statistically a metastat ic lesion measuring 5.2 x 4.3 cm. 2. There is mild mucosal thickening at the anastomotic suture line in the aguero sverse colon which is similar to the PET/CT of 09/27/2019. 3. No ascites or adenopathy. 4. Lithiasis in a contracted gallbladder. 5. Extensive diverticular disease distal colon.
[2020-05-24 14:04] LABS: Alanine Aminotransferase 8 U/L (0-33); Albumin Level 2.9 g/dL (3.5-5.2); Alkaline Phosphatase 87 IU/L (35-105); Blood Urea Nitrogen 21 mg/dL (8-23); Calcium 8.5 mg/dL (8.5-10.5); Carbon Dioxide 23 mmol/L (22-29); Chloride 103 mmol/L (98-107); Creatinine Clr Calc Pharmacy 38.7126; Globulin 3.5 g/dL (1.3-4.6); Glucose 139 mg/dL (65-115); Lipase 27 U/L (13-60); Osmolality Calculated 279 mOsm/kg (285-295); Sodium 135 mmol/L (136-145); Total Bilirubin 0.4 mg/dL (0.15-1.2); Total Protein 6.4 g/dL (6.6-8.7)
[2020-05-24 14:09] LABS: Anion Gap 13.4 (5-19); Aspartate Amino Transferase 26 U/L (0-32); Potassium 4.4 mmol/L (3.5-5.1)
[2020-05-24] MEDS: sodium chloride 0.9% 1,000 ML 999 ML IV (14:19)
--- NOTE | 2020-05-24 14:25 | PC.NURSE ---
Pt to CT accompanied by CT staff x2 at this time
[2020-05-24] MEDS: iodixanol 320 mg/mL 100mL Btl IV (14:29)
[2020-05-24 14:39] VITALS: BP 111/48; PULSE 80; RESP 18; O2SAT 100
--- NOTE | 2020-05-24 14:40 | PC.NURSE ---
Lights off , fluids infusing.
[2020-05-24 15:22] LABS: Add Urine Microscopic? NO
[2020-05-24 15:42] LABS: Bilirubin Urine Neg (NEGATIVE); Blood Urine Neg (Negative); Glucose Urine UA Norm (Normal); Ketones Urine Negative (Negative); Leukocyte Esterase Urine Negative (Negative); Nitrate Urine Negative (Negative); Protein Urine Neg (Negative); Specific Gravity, Urine 1.015 (1.005-1.030); Urine Appearance Clear (CLEAR); Urine Color Yellow (Yellow); Urobilinogen Urine Norm (Negative); pH Urine 6.5 (5-7)
[2020-05-24 15:57] VITALS: BP 111/55; PULSE 83; RESP 20; O2SAT 98
[2020-05-24 16:07] VITALS: BP 112/51; PULSE 80; RESP 16; O2SAT 98
[2020-05-24 17:45] VITALS: BP 114/60; PULSE 81; RESP 18; O2SAT 97
--- NOTE | 2020-05-24 17:46 | PC.NURSE ---
Resting on her back, denies any and all needs. Checked brief and it is dry, asked pt if she needed to use the bedpan but refused.
[2020-05-24 19:41] VITALS: BP 106/40; PULSE 77; RESP 18; O2SAT 96
--- NOTE | 2020-05-25 09:08 | DCPLANNER ---
retention manager was asked to call [facility] to see if scheduled appointment could be moved up any earlier. retention manager called the clinic, spoke with Nivia, a follow up appointment was rescheduled for , May 27 at 10:[address] Meade. retention manager gave nurse, Trinity, the appointment information on discharge paperwork, and informed ED physician of the scheduled appointment.
--- NOTE | 2020-07-08 16:12 | DCPLANNER ---
Patient had an appointment scheduled for 05.27.[address] [facility] - appointment was cancelled.
== END 2020-05-24 19:43 | disposition skilled nursing facility (03) ==
PROVIDERS: Emergency Provider Physician Assistant; PCP Family Medicine
DX: K92.2 Gastrointestinal hemorrhage, unspecified (principal); Z85.038 Personal history of other malignant neoplasm of large intestine; D64.89 Other specified anemias; K76.9 Liver disease, unspecified; Z79.82 Long term (current) use of aspirin
CPT/HCPCS: 12345; 36415; 74177; 80053; 81003; 83690; 85025; 96360; 99283; J7030; Q9967

== ENCOUNTER 2020-07-14 14:21 | Inpatient (IN) | payer MEDICAID, SELFPAY ==
[2020-07-14] VITALS (9 sets, daily range): BP systolic 104–131; BP diastolic 53–70; PULSE 83–86; RESP 16–20; TEMP 36.6–37.1; O2SAT 93–100; BMI 24.0
--- NOTE | 2020-07-14 14:28 | CTR_ITS ---
PROCEDURE INFORMATION: Exam: CT Abdomen And Pelvis With Contrast Exam date and time: 07/14/2020 3:24 PM Age: 85 years old Clinical indication: Abdominal tenderness and nausea; Prior surgery; Additional info: Abd pain TECHNIQUE: Imaging protocol: Computed tomography of the abdomen and pelvis with intravenous contrast. Radiation optimization: All CT scans at this facility use at least one of these dose optimization techniques: automated exposure control; mA and/or kV adjustment per patient size (includes targeted exams where dose is matched to clinical indication); or iterative reconstruction. Contrast material: OMNI 300; Contrast volume: 95 ml; Contrast route: INTRAVENOUS (IV); COMPARISON: CT abdomen pelvis w con* [id number] 05/24/2020 2:23 PM RADIATION DOSE METRICS: Total DLP (mGy-cm): 346.4 FINDINGS: Liver: There is a hypodense mass in the posterior right liver measuring 9.3 x 5.7 x 5.7 cm which has increased in size in the interval. Gallbladder and bile ducts: Gallstones are identified although there are no CT findings to suggest cholecystitis. Pancreas: Normal. No ductal dilation. Spleen: Normal. No splenomegaly. Adrenals: Normal. No mass. Kidneys and ureters: There is a cyst off the superior left kidney measuring 3.7 x 2.9 cm. No renal calcification or hydronephrosis. Stomach and bowel: There has been partial colectomy. There is a ventral hernia containing small bowel. There are air-fluid levels in small bowel. The small bowel diameter measures up to 2.5 cm. No bowel wall thickening. Appendix: No evidence of appendicitis. Intraperitoneal space: Unremarkable. No free air. No significant fluid collection. Vasculature: Unremarkable. No abdominal aortic aneurysm. Lymph nodes: Unremarkable. No enlarged lymph nodes. Urinary bladder: Unremarkable as visualized. Reproductive: Unremarkable as visualized. Bones/joints: Unremarkable. No acute fracture. Soft tissues: See Stomach and bowel finding. CT/CT abdomen pelvis w con* [id number] IMPRESSION: There are air-fluid levels in small bowel suggestive of partial obstruction or ileus. There is a mass in the right liver consistent with malignancy. This has increased in size when compared with 05/24/2020. There is a benign cyst in the mid left kidney. No follow-up imaging is recommended. Radiation Dose CTDIVOL = (mGy): DLP = 346.4 (mGy-cm)
[2020-07-14] MEDS: sodium chloride 0.9% 500 ML IV (14:36)
[2020-07-14 14:43] LABS: Basophils # 0.1 10^3/uL (0.0-0.1); Basophils % 0.5 %; Eosinophils # 0.3 10^3/uL (0.0-0.8); Eosinophils % 1.8 %; Hematocrit 23.8 % (37.0-47.0); Lymphocytes # 1.7 10^3/uL (0.8-4.8); Lymphocytes % 10.4 %; Mean Corpuscular HGB Conc 26.5 g/dL (30.0-36.0); Mean Corpuscular Hemoglobin 19.2 pg (28.0-34.0); Mean Corpuscular Volume 72.6 fL (81-99); Mean Platelet Volume 9.3 fL (7.4-10.4); Monocytes # 1.7 10^3/uL (0.2-0.9); Monocytes % 10.3 %; Neutrophils # 12.31 10^3/uL (1.8-7.7); Neutrophils % 76.6 %; Nucleated Red Blood Cells % 0 %; Platelet Count 677 10^3/cmm (130-400); Red Blood Count 3.28 10^6/uL (4.1-5.3); Red Cell Distribution Width 18.4 % (12.1-15.1); White Blood Count 16.1 10^3/uL (4.0-10.0)
--- NOTE | 2020-07-14 14:59 | ED_ITS ---
HPI - Nausea/Vomiting/Diarrhea General: Chief complaint: Nausea/Vomiting/Diarrhea Stated complaint: N/V LUQ ABD PAIN Time Seen by Provider: 07/14/20 14:24 Source: patient Mode of arrival: ambulatory Limitations: no limitations History of Present Illness: HPI Narrative: 85-year-old female states that she has been having some nausea vomiting along with some lower abdominal pain. States she also having left upper quadrant abdominal pain. States pain is sharp in nature and rates it a 2 out of 10. She is well-appearing here. She denies any worsening or improving factors. She is here from a local prison. Associated nausea: Yes Associated symtoms: Reports nausea; Denies chest pain, dysuria or headache(s) Review of Systems Const: Denies: fever(s), chills, body aches or change in appetite Eyes: Denies: blurry vision or eye discomfort ENMT: Denies: throat pain or dental pain Card: Denies: chest pain Resp: Denies: dyspnea GI: Reports: abdominal pain, nausea and vomiting : Denies: dysuria Musc: Denies: neck pain or back pain Skin/Breast: Denies: rash Neuro: Denies: headache(s) Psych: Denies: depression Jeffy/Lymph: Denies: easy bruising All/Imm: Denies: urticaria Physical Exam Const: COMMON NORMALS: no acute distress, patient oriented x3 and healthy appearing HENMT: COMMON NORMALS: normocephalic and atraumatic HEAD & SCALP: normocephalic and atraumatic Eye: COMMON NORMALS: Equal, round and reactive pupils present and EOMs intact bilaterally PUPIL: Yes Equal, round and reactive pupils present Neck/C-Spine: COMMON NORMALS: full ROM and supple Chest: COMMONS NORMALS: normal inspection of the chest and normal palpation of entire chest wall Resp: COMMON NORMALS: normal respiratory effort, No retractions, No use of accessory muscles and clear to auscultation bilaterally AUSCULTATION: clear to auscultation bilaterally Cardio: COMMON NORMALS: regular rate, regular rhythm and No murmurs present (Cardio) RATE: regular rate RHYTHM: regular rhythm GI: COMMON NORMALS: Normal to inspection, nondistended, normoactive bowel sounds present, Soft to palpation, non-tender and no masses PALPATION: Yes Soft to palpation OTHER: Hernia noted that is very easily reduced. Extremity: COMMON NORMALS: normal to inspection and full ROM Neuro: COMMON NORMALS: patient oriented x3, moves all extremities and no focal motor deficits Psych: COMMON NORMALS: mental status grossly normal, Normal thought process present and cooperative THOUGHT PROCESS: Normal thought process present Skin: COMMON NORMALS: no rashes or lesions noted and no wounds GENERAL SKIN EXAM: no rashes or lesions noted Course Vital Signs: Vital signs: Vital Signs Temperature 98.3 F 07/14/20 14:23 Pulse Rate 86 07/14/20 14:23 Respiratory Rate 18 07/14/20 14:23 Blood Pressure 116/56 07/14/20 14:39 Pulse Oximetry 99 07/14/20 14:39 MDM - Nausea/Vomiting/Diarrhea MDM Narrative: Medical decision making narrative: Patient presents here with abdominal pain is mild in nature. She had one episode of vomiting and no more. Patient CT scan showed a possible partial obstruction. She has no signs of obstruction here she has very good bowel sounds on exam and is had no vomiting here. She is anemic that is chronic in nature. We will transfuse her and I spoke to hospitalist will admit for observation to follow. She has been stable here. Lab Data: Labs: Lab Results 07/14/20 07/14/20 07/14/20 Range/Units 14:05 14:05 15:15 WBC 16.1 H (4.0-10.0) 10^3/ uL RBC 3.28 L (4.1-5.3) 10^6/u L Hgb 6.3 L* (11.5-15.3) g/dL Hct 23.8 L (37.0-47.0) % MCV 72.6 L (81-99) fL MCH 19.2 L (28.0-34.0) pg MCHC 26.5 L (30.0-36.0) g/dL RDW 18.4 H (12.1-15.1) % Plt Count 677 H (130-400) 10^3/c mm MPV 9.3 (7.4-10.4) fL Neut % (Auto) 76.6 % Lymph % (Auto) 10.4 % [place] % (Auto) 10.3 % Eos % (Auto) 1.8 % Baso % (Auto) 0.5 % Neut # (Auto) 12.31 H (1.8-7.7) 10^3/u L Lymph # (Auto) 1.7 (0.8-4.8) 10^3/u L [place] # (Auto) 1.7 H (0.2-0.9) 10^3/u L Eos # (Auto) 0.3 (0.0-0.8) 10^3/u L Baso # (Auto) 0.1 (0.0-0.1) 10^3/u L Nucleated RBC % (a uto) 0 % Nucleated RBCs # 0.0 /100WBC Sodium 136 (136-145) mmol/L Potassium 3.9 (3.5-5.1) mmol/L Chloride 102 (98-107) mmol/L Carbon Dioxide 24 (22-29) mmol/L Anion Gap 13.9 (5-19) BUN 22 (8-23) mg/dL Creatinine 0.7 (0.5-0.9) mg/dL GFR Calculation Not Reportable Glucose 127 H (65-115) mg/dL Calculated Osmolal ity 287 (285-295) mOsm/k g Calcium 8.3 L (8.5-10.5) mg/dL Total Bilirubin 0.3 (0.15-1.2) mg/dL AST 19 (0-32) U/L ALT 8 (0-33) U/L Alkaline Phosphata se 103 (35-105) IU/L Total Protein 6.6 (6.6-8.7) g/dL Albumin 3.3 L (3.5-5.2) g/dL Globulin 3.3 (1.3-4.6) g/dL Lipase 27 (13-60) U/L Urine Color Yellow (Yellow) Urine Appearance Hazy A (CLEAR) Urine pH 5 (5-7) Ur Specific Gravit y 1.025 (1.005-1.030) Urine Protein Neg (Negative) Urine Glucose (UA) Norm (Normal) Urine Ketones Negative (Negative) Urine Blood 2+ H (Negative) Urine Nitrate Positive H (Negative) Urine Bilirubin Neg (Negative) Urine Urobilinogen Norm (Negative) mg/dL Ur Leukocyte Lesley ase 2+ H (Negative) Urine RBC 0-4 H (0-2) /hpf Urine WBC >100 H (0-5) /hpf Ur Squamous Epith Cells 0-4 H (0-5) /hpf Ur Transition Epit h Cell 0-4 /hpf Amorphous Sediment Not Reportable Urine Bacteria 3+ H (NONE) /hpf Blood Type Rho(D) Type Antibody Screen Crossmatch 07/14/20 Range/Units 15:21 WBC (4.0-10.0) 10^3/ uL RBC (4.1-5.3) 10^6/u L Hgb (11.5-15.3) g/dL Hct (37.0-47.0) % MCV (81-99) fL MCH (28.0-34.0) pg MCHC (30.0-36.0) g/dL RDW (12.1-15.1) % Plt Count (130-400) 10^3/c mm MPV (7.4-10.4) fL Neut % (Auto) % Lymph % (Auto) % [place] % (Auto) % Eos % (Auto) % Baso % (Auto) % Neut # (Auto) (1.8-7.7) 10^3/u L Lymph # (Auto) (0.8-4.8) 10^3/u L [place] # (Auto) (0.2-0.9) 10^3/u L Eos # (Auto) (0.0-0.8) 10^3/u L Baso # (Auto) (0.0-0.1) 10^3/u L Nucleated RBC % (a uto) % Nucleated RBCs # /100WBC Sodium (136-145) mmol/L Potassium (3.5-5.1) mmol/L Chloride (98-107) mmol/L Carbon Dioxide (22-29) mmol/L Anion Gap (5-19) BUN (8-23) mg/dL Creatinine (0.5-0.9) mg/dL GFR Calculation Glucose (65-115) mg/dL Calculated Osmolal ity (285-295) mOsm/k g Calcium (8.5-10.5) mg/dL Total Bilirubin (0.15-1.2) mg/dL AST (0-32) U/L ALT (0-33) U/L Alkaline Phosphata se (35-105) IU/L Total Protein (6.6-8.7) g/dL Albumin (3.5-5.2) g/dL Globulin (1.3-4.6) g/dL Lipase (13-60) U/L Urine Color (Yellow) Urine Appearance (CLEAR) Urine pH (5-7) Ur Specific Gravit y (1.005-1.030) Urine Protein (Negative) Urine Glucose (UA) (Normal) Urine Ketones (Negative) Urine Blood (Negative) Urine Nitrate (Negative) Urine Bilirubin (Negative) Urine Urobilinogen (Negative) mg/dL Ur Leukocyte Lesley ase (Negative) Urine RBC (0-2) /hpf Urine WBC (0-5) /hpf Ur Squamous Epith Cells (0-5) /hpf Ur Transition Epit h Cell /hpf Amorphous Sediment Urine Bacteria (NONE) /hpf Blood Type O Negative Rho(D) Type Negative Antibody Screen Negative Crossmatch See Detail Imaging Data^: CT Abd/Pel: Radiologist's impression: [place] [address] CT Scan Report Signed Patient: Nayeli Ferreira Unit #: [id number] : 1935 Age/Sex: 85 / F ADM Date: 07/14/20 Loc: ER Room/Bed: Attending Dr: Ordering Provider/Ordering MD: Juan Cason MD Date of Service: 07/14/20 Procedure(s): CT abdomen pelvis w con* [id number] Accession Number(s): [id number] Report Number: [id number] PROCEDURE INFORMATION: Exam: CT Abdomen And Pelvis With Contrast Exam date and time: 07/14/2020 3:24 PM Age: 85 years old Clinical indication: Abdominal tenderness and nausea; Prior surgery; Additional info: Abd pain TECHNIQUE: Imaging protocol: Computed tomography of the abdomen and pelvis with intravenous contrast. Radiation optimization: All CT scans at this facility use at least one of these dose optimization techniques: automated exposure control; mA and/or kV adjustment per patient size (includes targeted exams where dose is matched to clinical indication); or iterative reconstruction. Contrast material: OMNI 300; Contrast volume: 95 ml; Contrast route: INTRAVENOUS (IV); COMPARISON: CT abdomen pelvis w con* [id number] 05/24/2020 2:23 PM RADIATION DOSE METRICS: Total DLP (mGy-cm): 346.4 FINDINGS: Liver: There is a hypodense mass in the posterior right liver measuring 9.3 x 5.7 x 5.7 cm which has increased in size in the interval. Gallbladder and bile ducts: Gallstones are identified although there are no CT findings to suggest cholecystitis. Pancreas: Normal. No ductal dilation. Spleen: Normal. No splenomegaly. Adrenals: Normal. No mass. Kidneys and ureters: There is a cyst off the superior left kidney measuring 3.7 x 2.9 cm. No renal calcification or hydronephrosis. Stomach and bowel: There has been partial colectomy. There is a ventral hernia containing small bowel. There are air-fluid levels in small bowel. The small bowel diameter measures up to 2.5 cm. No bowel wall thickening. Appendix: No evidence of appendicitis. Intraperitoneal space: Unremarkable. No free air. No significant fluid collection. Vasculature: Unremarkable. No abdominal aortic aneurysm. Lymph nodes: Unremarkable. No enlarged lymph nodes. Urinary bladder: Unremarkable as visualized. Reproductive: Unremarkable as visualized. Bones/joints: Unremarkable. No acute fracture. Soft tissues: See Stomach and bowel finding. CT/CT abdomen pelvis w con* [id number] IMPRESSION: There are air-fluid levels in small bowel suggestive of partial obstruction or ileus. There is a mass in the right liver consistent with malignancy. This has increased in size when compared with 05/24/2020. There is a benign cyst in the mid left kidney. No follow-up imaging is recommended. Discharge Plan Discharge Patient Disposition: Admitted As Inpatient Clinical Impression: Abdominal pain Anemia Qualifiers: Anemia type: unspecified type Qualified Code(s): D64.9 - Anemia, unspecified Condition: Stable Referrals: Car Gabriel Jr, MD [Primary Care Provider] - Coding Level of Care Code ED Patient Care Technician Instructor for [facility] Fwd Exam Comprehensive
[2020-07-14 15:01] LABS: Alanine Aminotransferase 8 U/L (0-33); Albumin Level 3.3 g/dL (3.5-5.2); Alkaline Phosphatase 103 IU/L (35-105); Anion Gap 13.9 (5-19); Aspartate Amino Transferase 19 U/L (0-32); Blood Urea Nitrogen 22 mg/dL (8-23); Calcium 8.3 mg/dL (8.5-10.5); Carbon Dioxide 24 mmol/L (22-29); Chloride 102 mmol/L (98-107); Globulin 3.3 g/dL (1.3-4.6); Glucose 127 mg/dL (65-115); Hemoglobin 6.3 g/dL (11.5-15.3); Lipase 27 U/L (13-60); Osmolality Calculated 287 mOsm/kg (285-295); Potassium 3.9 mmol/L (3.5-5.1); Sodium 136 mmol/L (136-145); Total Bilirubin 0.3 mg/dL (0.15-1.2); Total Protein 6.6 g/dL (6.6-8.7)
[2020-07-14] MEDS: iohexol 300 mg/mL 100 mL Btl IV (15:37)
[2020-07-14 15:45] LABS: Specific Gravity, Urine 1.025 (1.005-1.030); Urine Appearance Hazy (CLEAR); Urine Color Yellow (Yellow); pH Urine 5 (5-7)
[2020-07-14 15:46] LABS: Add Urine Microscopic? YES; Bilirubin Urine Neg (Negative); Blood Urine 2+ (Negative); Glucose Urine UA Norm (Normal); Ketones Urine Negative (Negative); Leukocyte Esterase Urine 2+ (Negative); Nitrate Urine Positive (Negative); Protein Urine Neg (Negative); Urobilinogen Urine Norm (Negative)
[2020-07-14 15:48] LABS: Add Urine Culture? Yes; Bacteria Urine 3+ /hpf; RBC Urine 0-4 /hpf (0-2); Squamous Epithelial Cell Urine 0-4 /hpf (0-5); Transitional Epi Cells Urine 0-4 /hpf; WBC Urine >100 /hpf (0-5)
[2020-07-14] MEDS: cefTRIAXone 1,000 MG in sodium chloride 0.9% (plus) 50 ML 100 MG IV (15:57)
--- NOTE | 2020-07-14 17:52 | PM.HP ---
Providers/Chief Complaint Admitting Physician: Roly Brown Primary Care Provider: Car Gabriel Jr, MD Chief Complaint: N/V LUQ ABD PAIN History of Present Illness Nayeli Ferreira is a 85 year old lady, skilled nursing resident with history of colon cancer, status post right hemicolectomy in 2018, status post chemotherapy, currently residing at skilled nursing was sent to ER for evaluation due to nausea, vomiting, lower abdominal pain this morning. Pain was sharp, 2/10. In ER she is noted to have acute on chronic anemia with hemoglobin of 6.3. She reports history of recurrent anemia for which she has been eating intermittent PRBC transfusions. She follows in office with Dr. Love with regards to this as well as her colon cancer. EGD and colonoscopy were considered during last visit. Blood transfusion was ordered for her in ER. She is also given a dose of Rocephin due to urinalysis suspicious for urinary tract infection. She reports that her abdominal complaints have resolved. She she has no further nausea, no vomiting. And says that her appetite currently has returned. She says that she had a bowel movement today and yesterday. CT scanning in ER shows air-fluid levels in small bowel suggestive of partial obstruction or ileus. Mass in the liver is noted consistent with malignancy, increased in size compared to May 2020. Per skilled nursing RN she normally walks from her room to the cafeteria. She has been pretty active. She eats and drinks okay. She has not had a bowel movement in 3 days. She has had some smears noted yesterday and today. Patient remembers having bowel movement, although there is not one documented. She otherwise has been recently found to have some recurrence of cancer in her liver. Apart from that has been in usual health. Her nurses not sure whether she has had EGD or colonoscopy as was planned back in April by oncology. She will try to find out and call us back. Review of Systems Const: Denies: fever(s), chills, body aches or malaise Eyes: Denies: change in vision or eye redness ENMT: Denies: throat pain, oral sores or ear or mastoid pain Card: Denies: chest pain, edema, pre-syncope or dyspnea on exertion Resp: Denies: dyspnea, productive cough, change in phlegm color or hemoptysis GI: Reports: abdominal pain (This morning was having lower abdominal discomfort, currently this is resolved.), vomiting (this morning) and constipation (last BM recorded 3 days ago. Otherwise some smears yesterday and today. ); Denies: nausea, diarrhea, hematochezia or melena : Denies: flank pain, urinary frequency or hematuria Musc: Denies: back pain, joint swelling or joint redness Skin/Breast: Denies: rash, sores or new lesions Neuro: Denies: headache(s), numbness in extremities, weakness in extremities, dizziness, confusion or seizure-like activity Endo: Denies: polyuria or polydipsia Jeffy/Lymph: Denies: easy bleeding or purpura All/Imm: Denies: urticaria, throat swelling or tongue swelling Medications/Allergies Home Medications Medication Instructions Recorded Confirmed Last Taken Type Robafen DM Cough 10 - 100 mg PO Q6H PRN 05/24/20 07/14/20 Unknown History albuterol sulfate 1 puff INHALATION QID PRN 05/24/20 07/14/20 Unknown History ascorbic acid (vitamin C) [C-500] 500 mg PO DAILY PRN 05/24/20 07/14/20 Unknown History aspirin [Aspirin Low Dose] 81 mg PO DAILY 05/24/20 07/14/20 07/14/20 History carvedilol 3.125 mg PO BID 05/24/20 07/14/20 07/14/20 History cetirizine 5 mg PO DAILY 05/24/20 07/14/20 07/13/20 History fluticasone prp-sod.chl,bicarb See Rx Instructions .ROUTE .COMPLEX 05/24/20 07/14/20 07/14/20 History levothyroxine 75 mcg PO DAILY 05/24/20 07/14/20 07/14/20 History simvastatin 20 mg PO QPM 05/24/20 07/14/20 07/13/20 History docusate sodium 100 mg PO BID 07/14/20 07/14/20 07/14/20 History Allergies Allergy/AdvReac Type Severity Reaction Status Date / Time No Known Allergies Allergy Verified 05/24/20 13:17 PFSH Acute PFSH: Medical History (Updated 07/14/20 @ 18:27 by Roly Brown MD) Colon cancer Congestive heart failure Coronary artery disease Hypercholesteremia Hypertension Hypothyroidism Surgical History H/O right hemicolectomy Family History Other No significant family history Social History Smoking and tobacco status: former smoker Alcohol intake: never Substance/Drug Use: never Lives independently: No Housing: Prison Marital status: / Vitals/I&O/Wt Last Vital Signs Temp 97.9 F 07/14/20 17:16 Pulse 83 07/14/20 17:16 Resp 20 H 07/14/20 17:16 BP 131/64 07/14/20 17:16 Pulse Ox 98 07/14/20 17:16 Weight last 48 hrs Weight 55.792 kg Physical Exam Const: COMMON NORMALS: no acute distress and patient oriented x3 GENERAL APPEARANCE: frail appearing OTHER: Hard of hearing, but lucid, pleasant, conversant. Oriented x3. HENMT: COMMON NORMALS: oropharynx normal Neck/C-Spine: COMMON NORMALS: no JVD Resp: COMMON NORMALS: normal respiratory effort and clear to auscultation bilaterally AUSCULTATION: clear to auscultation bilaterally Cardio: COMMON NORMALS: no JVD, regular rhythm, S1 normal heart sound present, S2 normal heart sound present and No murmurs present (Cardio) RHYTHM: regular rhythm HEART SOUNDS: S1 normal heart sound present and S2 normal heart sound present GI: COMMON NORMALS: Normal to inspection, nondistended, normoactive bowel sounds present, Soft to palpation and non-tender PALPATION: Yes Soft to palpation Extremity: COMMON NORMALS: no joint enlargement GENERAL: Yes edema (3+, R>L) Neuro: COMMON NORMALS: patient oriented x3 and moves all extremities Skin: COMMON NORMALS: no rashes or lesions noted GENERAL SKIN EXAM: no rashes or lesions noted Data : 07/14/20 14:05 07/14/20 14:05 A&P Assessment and plan (1) Anemia: Noted acute on chronic anemia. Known iron deficiency anemia. Previously seen by him on schedule by with consideration for EGD anoscopy. This was going to be considered by her public guardian Scott Aguilar. Per discussion with skilled nursing it appears that she had refused to proceed with colonoscopy. They are not sure about EGD, but it seems she had last one about a year ago. At this time PRBC transfusion of 2 units has been ordered for her in ER. We will follow-up hemoglobin subsequently. We will check Hemoccult. Possible GI bleed. Was suspected back in April. Add PPI every 12 hours. Hold aspirin for now. Only SCD for DVT prophylaxis.' I am not able to reach her public guardian currently. Left message for call back. Status: Acute Qualifiers: Anemia type: unspecified type Qualified Code(s): D64.9 - Anemia, unspecified (2) Partial small bowel obstruction: Abdominal pain, nausea, episode of vomiting this morning. Per discussion with her dietitian nurse at [facility] last documented bowel movement was 3 days ago. Patient seems to remember having bowel movement yesterday and today, but this is not documented. Nurse has seen may be some centimeters yesterday and today. In ER concern is for possible ileus versus partial bowel obstruction. He does say she is having some eructation. However, at the time of my visit she is actually feeling much better, and says that her abdominal pain has resolved. She feels like she can try eating something. She has had no recurrence of vomiting. We will go ahead and add bowel regimen with MiraLAX. Docusate will be continued. We will give Dulcolax suppository. Abdomen is soft, currently nontender. Lactic acid is normal. No suspicion for mesenteric ischemia. Clear liquid diet trial. Observe in the hospital. Has history of colon malignancy with right hemicolectomy in 2018. Currently it appears possibly recurrence with meta stasis to liver. Status: Acute (3) Leukocytosis: Leukocytosis and thrombocytosis appear to be possibly reactive due to acute on anemia, possibly secondary to vomiting. Thrombocytosis is to be chronic. Appears also have some mild dehydration. Received will challenge bolus in ER. Hold off additional IV infusion currently. Reassess trial of clear diet. She is afebrile, and otherwise has no complaints, and per discussion with nursing staff has been doing well apart from this morning's abdominal symptoms. At this time does not have suggestion of acute infection. Apart from episode of nausea and vomiting does not have symptoms of COVID-19. Status: Acute (4) Thrombocytosis: As above. Status: Acute (5) UTI (urinary tract infection): Received a dose of Rocephin. Follow urine culture. UTI back in 2016 with pansensitive E. coli. Continue with cefdinir. Status: Acute (6) Metastatic colon cancer to liver: Noted liver lesion which is somewhat larger now than back in May. This appears to be normal per discussion with skilled nursing staff. Follow-up with oncology. Status: Acute (7) Congestive heart failure: History of systolic CHF, with last EF noted in 2014 to be 35-40%., Grade 1 diastolic dysfunction noted as well. Akinetic anterior wall and apex. Appears may have acute on chronic CHF. Hold off additional fluid. She has lower extremity edema, about 3+, with right side worse than left. Will assess by TTE. She otherwise does not complain of shortness of breath, has been walking well at skilled nursing. Is not having any orthopnea. We will check venous duplex to exclude VTE. Until duplex is back SCD only on arm for prophylaxis. Status: Acute Additional A&P Information History of CAD: Hold aspirin. Continue beta-ann marie for now. Monitor blood pressures. Continue statin. Hypothyroidism: Continue levothyroxine COPD? Continue inhalers Attestations Medical Necessity Statement*: Admission of over 2 midnights continued versus management of acute on chronic anemia possible GI bleed, partial small bowel obstruction, UTI, CHF Coding Level of Care Code Acute Line Construction Supervisor for [facility] Fwd Diagnoses Anemia D64.9 Anemia type: unspecified type Partial small bowel obstruction K56.600 Leukocytosis D72.829 Thrombocytosis D47.3 UTI (urinary tract infection) N39.0 Metastatic colon cancer to liver C18.9; C78.7 Congestive heart failure I50.9
--- NOTE | 2020-07-14 18:02 | PC.NURSE ---
Attempted to return blood to lab as it has been more than 20 minutes since issue, was told that as long as blood infuses in 4 hours that blood is ok to use. Dr Cason notified and ok with transfusion.
--- NOTE | 2020-07-14 18:35 | PC.NURSE ---
pt report called to Faye ZARATE in SBAR format.
[2020-07-14] MEDS: polyethylene glycol 3350 Pkt 17 gm PO (22:37)
[2020-07-14] MEDS: pantoprazole 40 mg SDV IVP (22:37)
[2020-07-14] MEDS: pneumococcal (23 valent) SDV 0.5 mL IM (22:38)
[2020-07-14 23:50] LABS: Hemoglobin 7.5 g/dL (11.5-15.3)
[2020-07-15] VITALS (13 sets, daily range): BP systolic 97–146; BP diastolic 52–74; PULSE 70–87; RESP 15–18; TEMP 36.5–37; O2SAT 91–97
[2020-07-15 05:47] LABS: Basophils # 0.1 10^3/uL (0.0-0.1); Eosinophils # 0.3 10^3/uL (0.0-0.8); Eosinophils % 3.1 %; Hematocrit 29.8 % (37.0-47.0); Hemoglobin 8.4 g/dL (11.5-15.3); Lymphocytes # 1.3 10^3/uL (0.8-4.8); Lymphocytes % 12.4 %; Mean Corpuscular HGB Conc 28.2 g/dL (30.0-36.0); Mean Corpuscular Hemoglobin 22.2 pg (28.0-34.0); Mean Corpuscular Volume 78.6 fL (81-99); Mean Platelet Volume 9.3 fL (7.4-10.4); Monocytes # 1.2 10^3/uL (0.2-0.9); Neutrophils # 7.33 10^3/uL (1.8-7.7); Neutrophils % 70.9 %; Nucleated Red Blood Cells % 0 %; Platelet Count 488 10^3/cmm (130-400); Red Blood Count 3.79 10^6/uL (4.1-5.3); Red Cell Distribution Width 19.9 % (12.1-15.1); White Blood Count 10.3 10^3/uL (4.0-10.0)
[2020-07-15 06:18] LABS: Alanine Aminotransferase 7 U/L (0-33); Albumin Level 2.4 g/dL (3.5-5.2); Alkaline Phosphatase 84 IU/L (35-105); Anion Gap 12.9 (5-19); Aspartate Amino Transferase 15 U/L (0-32); Blood Urea Nitrogen 16 mg/dL (8-23); Carbon Dioxide 22 mmol/L (22-29); Chloride 109 mmol/L (98-107); Globulin 3.2 g/dL (1.3-4.6); Glucose 89 mg/dL (65-115); Osmolality Calculated 291 mOsm/kg (285-295); Potassium 3.9 mmol/L (3.5-5.1); Sodium 140 mmol/L (136-145); Total Bilirubin 0.6 mg/dL (0.15-1.2); Total Protein 5.6 g/dL (6.6-8.7)
[2020-07-15] MEDS: pantoprazole 40 mg SDV IVP ×2 (08:38→20:00)
[2020-07-15] MEDS: cefdinir 300 MG CAPSULE PO ×2 (10:39→18:22)
[2020-07-15] MEDS: docusate sodium 100 mg Capsule PO (10:39)
[2020-07-15] MEDS: cetirizine 10 mg Tablet 5 MG PO (10:39)
[2020-07-15] MEDS: levothyroxine 25 mcg Tablet PO (10:40)
[2020-07-15] MEDS: carvedilol 3.125 mg Tablet PO ×2 (10:40→18:22)
[2020-07-15] MEDS: levothyroxine 50 mcg Tablet PO (10:40)
--- NOTE | 2020-07-15 11:08 | PC.CHAP ---
Pastoral Care Encounter/Spiritual Assessment Type of Contact [] Declined bone tender visit [] Patient/Family/Request visit [] Outpatient visit [] Follow-up visit [] Physician referral [] Code/Alert [x] Routine visit [] Staff referral [] Actively dying [] Patient sleeping [] Family support [] [] Out of room [] Palliative care [] [x] Receiving care in room [] Pre-surgical visit [] Trauma [] Long length of stay [] ICU visit [] Other: Relational/Emotional Strength [] Patient feels connected with others/family/visitors/staff [x] Distress [] Loneliness/isolation [] Abandonment Spirituality of Patient [x] Person of Josselin [] Attends Methodist of their [place] [x] Believes in Prayer [] Reads Bible or Scientology materials [] There are Spiritual issues to be addressed Automotive Heavy Mechanic Interventions [x] Prayer [x] Active listening [x] Non-anxious presence [x] Spiritual/emotional support [] Crisis/trauma care [x] Spiritual counseling [] Bereavement support [] Provided bereavement packet [] Provided Bible/devotional materials [] Provided toy/stuffed animal, coloring book to patient or family member [] Provided Communion [] Anointing/[place] [] Salvation [x] Completed spiritual assessment [] Other: Impact on Illness or Injury [] Angry [] Fearful [x] Anxious [] Often cries [] Exhaustion [x] Unable to work [] Unable to attend tenriism [] Unable to walk/stand [] Unable to read [x] Unable to drive [] Unable to eat/drink [] Unable to sleep [] Unable to be with family [] Patient intubated [] Other: Summary Retaired unable to communicate about her health was able to talk with her has a good attitude Time spent with patient 10 mins
[2020-07-15] MEDS: atorvastatin 40 mg Tablet 20 MG PO (18:21)
--- NOTE | 2020-07-15 19:10 | USCV_ITS ---
Nayeli Ferreira Age: 85 Gender: F : 1935 Exam Date: 07/15/2020 06:31 Ordering Phys: Roly Brown MD Technologist: Valentina Goel [place] [facility] [place] assess for vte HISTORY: Lower extremity swelling. PROCEDURES: Comparison: none available. Venous duplex imaging was performed in bilateral lower extremities. The following venous structures were evaluated: common femoral vein, profunda vein, proximal portion of the greater saphenous vein, superficial femoral vein, and the popliteal vein. In addition, the posterior tibial and peroneal trunk were evaluated. Serial compression, augmentation maneuvers, and spectral Doppler flow evaluation were performed. FINDINGS: No evidence of DVT seen in any vessel visualized at this time. CONCLUSIONS No evidence of right lower extremity DVT. No evidence of left lower extremity DVT. Celio Cardenas MD (Electronically Signed) Final Date: 15 July 2020 16:33 S
--- NOTE | 2020-07-15 19:10 | USCV_ITS ---
Nayeli Ferreira Age: 85 Gender: F : 1935 Exam Date: 07/15/2020 10:12 Ordering Phys: Roly Brown MD Technologist: Raquel Murrell Exam Location: [facility] [place] Indication: CHF BP: 142 / 76 HR: 81 Rhythm: Sinus Technical Quality: Technically difficult study MEASUREMENTS (Male / Female) Normal Values 2D ECHO LV Diastolic Diameter PLAX 2.8 cm 4.2 - 5.9 / 3.9 - 5.3 cm LV Systolic Diameter PLAX 1.2 cm IVS Diastolic Thickness 1.3 cm 0.6 - 1.0 / 0.6 - 0.9 cm IVS Systolic Thickness 2.1 cm LVPW Diastolic Thickness 0.9 cm 0.6 - 1.0 / 0.6 - 0.9 cm LVPW Systolic Thickness 1.2 cm LVOT Diameter 2.0 cm LV Ejection Fraction 2D Teich 88.8 % LV Ejection Fraction MOD 2C 70.2 % LV Ejection Fraction 2C AL 70.9 % LA Diameter 2.0 cm LA Width 3.1 cm LA Height 3.2 cm M-MODE LV Diastolic Diameter MM 4.7 cm 4.2 - 5.9 / 3.9 - 5.3 cm LV Systolic Diameter MM 2.6 cm LV Ejection Fraction MM Teich 76.0 % IVS Diastolic Thickness MM 0.6 cm 0.6 - 1.0 / 0.6 - 0.9 cm IVS Systolic Thickness MM 1.0 cm LVPW Diastolic Thickness MM 0.8 cm 0.6 - 1.0 / 0.6 - 0.9 cm LVPW Systolic Thickness MM 1.3 cm Aortic Annulus Diameter 2.8 cm LA Ao Ratio MM 0.7 MV E Point Septal Separation 0.5 cm DOPPLER AV Peak Velocity 115.7 cm/s LVOT Peak Velocity 100.0 cm/s AV Area Cont Eq vti 2.7 cm squared AV Area Cont Eq pk 2.7 cm squared MV Peak Velocity 115.0 cm/s MV Area PHT 4.4 cm squared Mitral E to A Ratio 1.2 MV E' Velocity 57.0 cm/s Mitral E to MV E' Ratio 11.9 Mitral E to LV E' Lateral Ratio 11.7 Mitral E to LV E' Septal Ratio 12.1 TR Peak Velocity 317.3 cm/s TR Peak Gradient 40.3 mmHg Right Atrial Pressure 3.0 mmHg Pulmonary Artery Systolic Pressu 43.3 mmHg PV Peak Velocity 90.0 cm/s RV Acceleration Time 0.1 s FINDINGS Left Ventricle Normal left ventricular size, systolic function and wall thickness. LVEF is 50 to 55%. Regional wall motion abnormalities cannot be assessed because of limited visualization. Normal left ventricular wall thickness. Diastolic function is abnormal. Right Ventricle Not well visualized. Right Atrium The right atrium is normal in size. Left Atrium The left atrium is normal in size. Mitral Valve Structurally normal mitral valve without significant stenosis or prolapse. There is no mitral regurgitation. Aortic Valve Aortic valve is thickened. No significant stenosis is noted. There is no aortic regurgitation. Tricuspid Valve Structurally normal tricuspid valve without significant stenosis or regurgitation. Mild to moderate tricuspid regurgitation is noted. RVSP is 40 to 45 mmHg. Mild to moderate pulmonary hypertension is noted. RA pressure is 0 to 5 mmHg. Pulmonic Valve Structurally normal pulmonic valve without significant stenosis. There is no pulmonic regurgitation. Pericardium Normal pericardium without effusion. Aorta Normal ascending aorta dimension. CONCLUSIONS LV systolic function is grossly normal with EF of 50 to 55%. Regional wall motion abnormalities cannot be assessed because of limited visualization. RV is not well visualized. Aortic valve is thickened however no significant stenosis is noted. Mild to moderate pulmonary hypertension is present with RVSP of 40 to 45 mmHg. Normal RA pressure of 0 to 5 mmHg. Compared to prior echo from 01/10/2015, LV systolic function has improved to 50 to 55%. Arnav Reyes MD (Electronically Signed) Final Date: 15 July 2020 11:20 S
--- NOTE | 2020-07-15 21:15 | P.PN_ITS ---
Subjective Subjective: Interval history: She reports she is doing a little bit better, although says does not have appetite today. She says she is not passing much gas, although a little bit. Vitals/I&O/Wt Last Vital Signs Temp 98.4 F 07/15/20 20:00 Pulse 83 07/15/20 20:06 Resp 18 07/15/20 20:06 BP 112/65 07/15/20 20:00 Pulse Ox 95 07/15/20 20:06 07/15/20 07/15/20 07/15/20 06:59 14:59 22:59 Intake Total 700 / 820 240 / 240 Output Total 650 / 650 300 / 300 550 / 850 Balance 50 / 170 -300 / -300 -310 / -610 Weight last 48 hrs Weight 59.466 kg Weight 55.792 kg Physical Exam Const: COMMON NORMALS: no acute distress and patient oriented x3 GENERAL APPEARANCE: frail appearing OTHER: Hard of hearing, but lucid, pleasant, conversant. Oriented x3. HENMT: COMMON NORMALS: oropharynx normal Neck/C-Spine: COMMON NORMALS: no JVD Resp: COMMON NORMALS: normal respiratory effort and clear to auscultation bilaterally AUSCULTATION: clear to auscultation bilaterally Cardio: COMMON NORMALS: no JVD, regular rhythm, S1 normal heart sound present, S2 normal heart sound present and No murmurs present (Cardio) RHYTHM: regular rhythm HEART SOUNDS: S1 normal heart sound present and S2 normal heart sound present GI: COMMON NORMALS: Normal to inspection, nondistended, normoactive bowel sounds present, Soft to palpation and non-tender PALPATION: Yes Soft to palpation Extremity: COMMON NORMALS: no joint enlargement GENERAL: Yes edema (1+, R>L) Neuro: COMMON NORMALS: patient oriented x3 and moves all extremities Skin: COMMON NORMALS: no rashes or lesions noted GENERAL SKIN EXAM: no rashes or lesions noted Data : 07/15/20 05:11 07/15/20 05:11 Micro: Microbiology 07/14/20 15:15 Urine Culture - Preliminary Urine,Clean Catch Gram Negative Rods A&P Assessment and plan (1) Anemia: Discussed with her public guardian. Per discussion they have previously planned for EGD and colonoscopy, however, on consideration discussion the patient had declined to do either. Consistent with her wishes, age and overall condition per discussion with her guardian decision was made for more comfort based approach and avoiding aggressive interventions. In line with this currently we will not pursue additional evaluation by upper or lower endoscopy. Reassess hemoglobin in the morning. If stable her guardian is agreeable with discharge back to shelter facility and outpatient follow-up, as well as further discussions with regards to goals of care. Acute blood loss anemia due to GI blood loss, with known iron deficiency anemia. PPI every 12 hours. Hold aspirin for now. Only SCD for DVT prophylaxis. Status: Acute Qualifiers: Anemia type: unspecified type Qualified Code(s): D64.9 - Anemia, unspecified (2) Partial small bowel obstruction: No further abdominal pain. No vomiting. I hear normal bowel sounds. Still no bowel movement. Says no appetite. For some reason Dulcolax suppository charted as patient refused. She says it was not offered to her. Will order again as she is willing to receive 1. Continue MiraLAX. If no success consider enema. Possible ileus versus partial bowel obstruction. She says is passing small amount of gas. Abdomen is soft, currently nontender. Lactic acid is normal. No suspicion for mesenteric ischemia. Clear liquid diet trial. Has history of colon malignancy with right hemicolectomy in 2018. Currently it appears possibly recurrence with meta stasis to liver. Status: Acute (3) Leukocytosis: Improved Status: Acute (4) Thrombocytosis: As above. Status: Acute (5) UTI (urinary tract infection): Gram-negative rods. Continue with cefdinir. Status: Acute (6) Metastatic colon cancer to liver: Noted liver lesion which is somewhat larger now than back in May. This appears to be normal per discussion with [facility] staff. Follow-up with oncology. Status: Acute (7) Congestive heart failure: Currently with improvement in ejection fraction up to about 50%. Appears to have possible pulmonary hypertension. History of systolic CHF, with last EF noted in 2014 to be 35-40%., Grade 1 diastolic dysfunction noted as well. Akinetic anterior wall and apex. Appears may have acute on chronic CHF. Hold off additional fluid. She has lower extremity edema, about 3+, with right side worse than left. She otherwise does not complain of shortness of breath, has been walking well at [facility]. Is not having any orthopnea. No VTE on venous duplex. SCD for DVT prophylaxis. Status: Acute Additional A&P Information History of CAD: Hold aspirin. Continue beta-ann marie for now. Monitor blood pressures. Continue statin. Hypothyroidism: Continue levothyroxine COPD? Continue inhalers Attestations Medical Necessity Statement*: Continue admission for assessment of management of acute blood loss anemia, partial small bowel obstruction, UTI in a lady with advanced age and underlying malignancy. Coding Level of Care Code Acute Business Performance Analyst for Chg Fwd Diagnoses Anemia D64.9 Anemia type: unspecified type Partial small bowel obstruction K56.600 Leukocytosis D72.829 Thrombocytosis D47.3 UTI (urinary tract infection) N39.0 Metastatic colon cancer to liver C18.9; C78.7 Congestive heart failure I50.9
--- NOTE | 2020-07-15 22:56 | PC.NURSE ---
This RN asked Patient if I could administer a suppository. Pt stated that she was too tired and did not want to have one. This RN educated Pt on the suppository and Pt was adamant that she did not want it. Pt states again, as she did during admission assessment, last night, that she had a bowel movement yesterday and had no problems going. Pt is alert and oriented x4 and has the right to refuse. This was honored by RN. No other needs voiced at this time, will continue to monitor.
[2020-07-16] VITALS (8 sets, daily range): BP systolic 95–138; BP diastolic 53–76; PULSE 74–91; RESP 14–18; TEMP 36.5–36.9; O2SAT 91–94
[2020-07-16 05:15] LABS: Basophils # 0.1 10^3/uL (0.0-0.1); Basophils % 0.9 %; Eosinophils # 0.7 10^3/uL (0.0-0.8); Eosinophils % 6.8 %; Hematocrit 30.4 % (37.0-47.0); Hemoglobin 8.8 g/dL (11.5-15.3); Lymphocytes # 1.4 10^3/uL (0.8-4.8); Lymphocytes % 13.2 %; Mean Corpuscular HGB Conc 28.9 g/dL (30.0-36.0); Mean Corpuscular Hemoglobin 22.4 pg (28.0-34.0); Mean Corpuscular Volume 77.6 fL (81-99); Mean Platelet Volume 9.2 fL (7.4-10.4); Monocytes # 1.2 10^3/uL (0.2-0.9); Monocytes % 11.3 %; Neutrophils # 7.13 10^3/uL (1.8-7.7); Neutrophils % 67.5 %; Nucleated Red Blood Cells % 0 %; Platelet Count 446 10^3/cmm (130-400); Red Blood Count 3.92 10^6/uL (4.1-5.3); Red Cell Distribution Width 20.5 % (12.1-15.1); White Blood Count 10.6 10^3/uL (4.0-10.0)
[2020-07-16 05:39] LABS: Alanine Aminotransferase 7 U/L (0-33); Albumin Level 2.6 g/dL (3.5-5.2); Alkaline Phosphatase 84 IU/L (35-105); Anion Gap 9.9 (5-19); Aspartate Amino Transferase 19 U/L (0-32); Blood Urea Nitrogen 12 mg/dL (8-23); Calcium 8.1 mg/dL (8.5-10.5); Carbon Dioxide 26 mmol/L (22-29); Chloride 106 mmol/L (98-107); Globulin 3.1 g/dL (1.3-4.6); Glucose 78 mg/dL (65-115); Osmolality Calculated 285 mOsm/kg (285-295); Potassium 3.9 mmol/L (3.5-5.1); Sodium 138 mmol/L (136-145); Total Bilirubin 0.5 mg/dL (0.15-1.2); Total Protein 5.7 g/dL (6.6-8.7)
[2020-07-16] MEDS: pantoprazole 40 mg SDV IVP ×2 (10:03→20:03)
[2020-07-16] MEDS: magnesium citrate Btl 296 mL 150 ML PO (10:04)
[2020-07-16] MEDS: bisacodyl 10 mg Supp PR (10:04)
[2020-07-16] MEDS: cefdinir 300 MG CAPSULE PO ×2 (10:05→18:17)
[2020-07-16] MEDS: carvedilol 3.125 mg Tablet PO ×2 (10:05→18:17)
[2020-07-16] MEDS: docusate sodium 100 mg Capsule PO ×2 (10:06→18:17)
[2020-07-16] MEDS: cetirizine 10 mg Tablet 5 MG PO (10:06)
[2020-07-16] MEDS: levothyroxine 50 mcg Tablet PO (10:07)
[2020-07-16] MEDS: levothyroxine 25 mcg Tablet PO (10:07)
[2020-07-16] MEDS: polyethylene glycol 3350 Pkt 17 gm PO (10:08)
[2020-07-16 14:50] LABS: SARS Covid-2 Antigen Negative (Negative)
--- NOTE | 2020-07-16 16:37 | PC.NURSE ---
Dr Emery notified of patient's small bowel movement after enema. No further orders at this time.
[2020-07-16] MEDS: atorvastatin 40 mg Tablet 20 MG PO (18:17)
--- NOTE | 2020-07-16 19:08 | PM.PN ---
Subjective Subjective: Interval history: She says she is feeling better. Still has had very poor oral intake per discussion with nursing staff. No bowel movement despite bowel regimen and suppository. But denies abdominal pain. Has had no vomiting. Says now is passing a little bit more gas. Vitals/I&O/Wt Last Vital Signs Temp 97.7 F 07/16/20 15:24 Pulse 78 07/16/20 15:24 Resp 18 07/16/20 15:24 BP 124/76 07/16/20 15:24 Pulse Ox 93 07/16/20 15:24 07/16/20 07/16/20 07/16/20 06:59 14:59 22:59 Intake Total 240 / 240 420 / 660 Output Total 800 / 800 Balance -560 / -560 420 / -140 Weight last 48 hrs Weight 56.699 kg Weight 59.466 kg Physical Exam Const: COMMON NORMALS: no acute distress and patient oriented x3 GENERAL APPEARANCE: frail appearing OTHER: Hard of hearing, but lucid, pleasant, conversant. Oriented x3. HENMT: COMMON NORMALS: oropharynx normal Neck/C-Spine: COMMON NORMALS: no JVD Resp: COMMON NORMALS: normal respiratory effort and clear to auscultation bilaterally AUSCULTATION: clear to auscultation bilaterally Cardio: COMMON NORMALS: no JVD, regular rhythm, S1 normal heart sound present, S2 normal heart sound present and No murmurs present (Cardio) RHYTHM: regular rhythm HEART SOUNDS: S1 normal heart sound present and S2 normal heart sound present GI: COMMON NORMALS: Normal to inspection, nondistended, normoactive bowel sounds present, Soft to palpation and non-tender PALPATION: Yes Soft to palpation Extremity: COMMON NORMALS: no joint enlargement GENERAL: Yes edema (1+, R>L) Neuro: COMMON NORMALS: patient oriented x3 and moves all extremities Skin: COMMON NORMALS: no rashes or lesions noted GENERAL SKIN EXAM: no rashes or lesions noted Data : 07/16/20 04:52 07/16/20 04:52 Micro: Microbiology 07/14/20 15:15 Urine Culture - Final Urine,Clean Catch Enterobacter intermedius A&P Assessment and plan (1) Partial small bowel obstruction: Poor appetite, poor oral intake, no BM despite bowel regimen. Requested for milk molasses enema and later this evening actually had several bowel movements. Continue with oral diet, plan for discharge to intermediate in the morning if no further issues. Possible ileus versus partial bowel obstruction. She says is passing small amount of gas. Abdomen is soft, currently nontender. Lactic acid is normal. No suspicion for mesenteric ischemia. Clear liquid diet trial. Has history of colon malignancy with right hemicolectomy in 2018. Currently it appears possibly recurrence with meta stasis to liver. Status: Acute (2) Anemia: Discussed with her public guardian. Per discussion they have previously planned for EGD and colonoscopy, however, on consideration discussion the patient had declined to do either. Consistent with her wishes, age and overall condition per discussion with her guardian decision was made for more comfort based approach and avoiding aggressive interventions. In line with this currently we will not pursue additional evaluation by upper or lower endoscopy. If everything remains stable plan for discharge back to [facility] facility and outpatient follow-up, as well as further discussions with regards to goals of care. Acute blood loss anemia due to GI blood loss, with known iron deficiency anemia. Remained stable after PRBC transfusion. PPI every 12 hours. Hold aspirin for now. Only SCD for DVT prophylaxis. Status: Acute Qualifiers: Anemia type: unspecified type Qualified Code(s): D64.9 - Anemia, unspecified (3) Leukocytosis: Improved Status: Acute (4) Thrombocytosis: As above. Status: Acute (5) UTI (urinary tract infection): Gram-negative rods. Continue with cefdinir. Status: Acute (6) Metastatic colon cancer to liver: Noted liver lesion which is somewhat larger now than back in May. This appears to be normal per discussion with intermediate staff. Follow-up with oncology. Status: Acute (7) Congestive heart failure: Currently with improvement in ejection fraction up to about 50%. Appears to have possible pulmonary hypertension. History of systolic CHF, with last EF noted in 2014 to be 35-40%., Grade 1 diastolic dysfunction noted as well. Akinetic anterior wall and apex. Appears may have acute on chronic CHF. Hold off additional fluid. She has lower extremity edema, about 3+, with right side worse than left. She otherwise does not complain of shortness of breath, has been walking well at intermediate. Is not having any orthopnea. No VTE on venous duplex. SCD for DVT prophylaxis. Status: Acute Additional A&P Information History of CAD: Hold aspirin. Continue beta-ann marie for now. Monitor blood pressures. Continue statin. Hypothyroidism: Continue levothyroxine COPD? Continue inhalers Attestations Medical Necessity Statement*: Continue admission due to partial small bowel obstruction, acute blood loss anemia, with likely discharge in the morning if remains stable. Coding Level of Care Code Acute Continuous Miner Operator for g Fwd Diagnoses Partial small bowel obstruction K56.600 Anemia D64.9 Anemia type: unspecified type Leukocytosis D72.829 Thrombocytosis D47.3 UTI (urinary tract infection) N39.0 Metastatic colon cancer to liver C18.9; C78.7 Congestive heart failure I50.9
[2020-07-17] VITALS (8 sets, daily range): BP systolic 114–132; BP diastolic 70–76; PULSE 73–81; RESP 16–18; TEMP 36.7–36.8; O2SAT 91–94
[2020-07-17 06:41] LABS: Basophils # 0.1 10^3/uL (0.0-0.1); Basophils % 0.8 %; Eosinophils # 0.8 10^3/uL (0.0-0.8); Eosinophils % 7.3 %; Hematocrit 33.3 % (37.0-47.0); Hemoglobin 9.4 g/dL (11.5-15.3); Lymphocytes # 1.4 10^3/uL (0.8-4.8); Lymphocytes % 12.9 %; Mean Corpuscular HGB Conc 28.2 g/dL (30.0-36.0); Mean Platelet Volume 8.9 fL (7.4-10.4); Monocytes # 1.3 10^3/uL (0.2-0.9); Monocytes % 12.6 %; Neutrophils # 7.02 10^3/uL (1.8-7.7); Nucleated Red Blood Cells % 0 %; Platelet Count 497 10^3/cmm (130-400); Red Blood Count 4.27 10^6/uL (4.1-5.3); Red Cell Distribution Width 21.7 % (12.1-15.1); White Blood Count 10.6 10^3/uL (4.0-10.0)
[2020-07-17 07:18] LABS: Alanine Aminotransferase 7 U/L (0-33); Albumin Level 2.8 g/dL (3.5-5.2); Alkaline Phosphatase 92 IU/L (35-105); Anion Gap 12.6 (5-19); Aspartate Amino Transferase 19 U/L (0-32); Blood Urea Nitrogen 11 mg/dL (8-23); Calcium 8.4 mg/dL (8.5-10.5); Carbon Dioxide 25 mmol/L (22-29); Chloride 103 mmol/L (98-107); Glucose 94 mg/dL (65-115); Osmolality Calculated 283 mOsm/kg (285-295); Potassium 3.6 mmol/L (3.5-5.1); Sodium 137 mmol/L (136-145); Total Bilirubin 0.5 mg/dL (0.15-1.2); Total Protein 5.8 g/dL (6.6-8.7)
[2020-07-17] MEDS: albuterol 8 gm MDI 1 PUFF INHALATION ×2 (08:33→11:57)
[2020-07-17] MEDS: cefdinir 300 MG CAPSULE PO (09:55)
[2020-07-17] MEDS: cetirizine 10 mg Tablet 5 MG PO (10:21)
[2020-07-17] MEDS: carvedilol 3.125 mg Tablet PO (10:22)
[2020-07-17] MEDS: levothyroxine 25 mcg Tablet PO (10:22)
[2020-07-17] MEDS: pantoprazole 40 mg SDV IVP (10:23)
[2020-07-17] MEDS: levothyroxine 50 mcg Tablet PO (10:23)
[2020-07-17] MEDS: docusate sodium 100 mg Capsule PO (10:23)
--- NOTE | 2020-07-17 11:51 | PM.DCS ---
Discharge Providers Date of Admission: 07/14/20 16:41 Date of Discharge: July 17, 2020 Attending Provider at Admission: Roly Brown Attending Provider at Discharge: Roly Brown Primary Care Provider: Car Gabriel Jr, MD Diagnoses at Discharge Discharge Diagnosis (1) Partial small bowel obstruction: Status: Acute (2) Anemia: Status: Acute Qualifiers: Anemia type: unspecified type Qualified Code(s): D64.9 - Anemia, unspecified (3) Leukocytosis: Status: Acute (4) Thrombocytosis: Status: Acute (5) UTI (urinary tract infection): Status: Acute (6) Metastatic colon cancer to liver: Status: Acute (7) Congestive heart failure: Status: Acute Reason for Visit Reason for Visit: N/V LUQ ABD PAIN Hospital Course Discharge Summary: Very pleasant 85-year-old lady with history of colon cancer, history of right hemicolectomy in 2018, status post chemotherapy brought in from long-term for assessment to emergency department due to nausea with poor oral intake, lower abdominal discomfort on the morning of 07/14, she is also not had a bowel movement for about 3 days prior to that. In ER incidentally noted to have hemoglobin of 6.3 with acute on chronic anemia. She received PRBC transfusion for anemia. Per discussion with her as well as her public guardian Scott Aguilar upper and lower endoscopy has been considered previously due to similar situation, and she had declined. Per discussion with her she does not want any aggressive interventions. Her hemoglobin did respond well to previous transfusion and she remained stable. She has been continued on twice daily PPI. CT abdomen pelvis showed some possible partial small bowel obstruction versus ileus, which may explain her episode of vomiting and poor appetite. She has continued to have poor appetite in the hospital, bowel regimen was started, and eventually received an enema and had several bowel movements with improvement in her symptoms. There was concern for possible mild acute on chronic CHF with lower extremity edema, however, with poor appetite diuretics were held, and her edema has been improving, and CHF currently appears compensated. She does also have incisional hernia on anterior lower abdomen following her prior surgery, however, says she would not want surgery to try to repair that. Hernia is reducible. She does say that it only bothers her when she coughs. She was treated for UTI with cefdinir. Culture appears to be showing Enterobacter intermedius resistant to Augmentin, sensitive to Rocephin but resistant to cefuroxime, intermediate to nitrofurantoin. Since she remains stable, ileus/partial bowel obstruction is resolved, she is eating and drinking she will be discharged back to group home facility. Please readdress again with her goals of care and code status as she is not wanting to pursue any aggressive interventions. Follow-up with oncology for discussion of suspected metastatic lesion to her liver which appears to be enlarging. Physical Exam Const: COMMON NORMALS: no acute distress and patient oriented x3 GENERAL APPEARANCE: frail appearing OTHER: Hard of hearing, but lucid, pleasant, conversant. Oriented x3. HENMT: COMMON NORMALS: oropharynx normal Neck/C-Spine: COMMON NORMALS: no JVD Resp: COMMON NORMALS: normal respiratory effort and clear to auscultation bilaterally AUSCULTATION: clear to auscultation bilaterally Cardio: COMMON NORMALS: no JVD, regular rhythm, S1 normal heart sound present, S2 normal heart sound present and No murmurs present (Cardio) RHYTHM: regular rhythm HEART SOUNDS: S1 normal heart sound present and S2 normal heart sound present GI: COMMON NORMALS: Normal to inspection, nondistended, normoactive bowel sounds present, Soft to palpation and non-tender PALPATION: Yes Soft to palpation Extremity: COMMON NORMALS: no joint enlargement GENERAL: Yes edema (1+, R>L) Neuro: COMMON NORMALS: patient oriented x3 and moves all extremities Skin: COMMON NORMALS: no rashes or lesions noted GENERAL SKIN EXAM: no rashes or lesions noted Discharge Data Data Completed and Pending: Completed Studies During Hospitalization Category Date Time Status CT abdomen pelvis w con* [id number] Urge nt Cat Scan 07/14/20 14:28 Completed CV echo complete* [id number] Routine Ultrasound 07/15/20 19:10 [place] [id number] Routin e Ultrasound 07/15/20 19:10 Completed Labs from last 24 hours 07/17/20 07/17/20 07/16/20 06:14 06:14 14:10 WBC 10.6 H RBC 4.27 Hgb 9.4 L Hct 33.3 L MCV 78.0 L MCH 22.0 L MCHC 28.2 L RDW 21.7 H Plt Count 497 H MPV 8.9 Neut % (Auto) 66.0 Lymph % (Auto) 12.9 [place] % (Auto) 12.6 Eos % (Auto) 7.3 Baso % (Auto) 0.8 Neut # (Auto) 7.02 Lymph # (Auto) 1.4 [place] # (Auto) 1.3 H Eos # (Auto) 0.8 Baso # (Auto) 0.1 Nucleated RBC % (a uto) 0 Nucleated RBCs # 0.0 Sodium 137 Potassium 3.6 Chloride 103 Carbon Dioxide 25 Anion Gap 12.6 BUN 11 Creatinine 0.8 GFR Calculation Not Reportable Glucose 94 Calculated Osmolal ity 283 L Calcium 8.4 L Total Bilirubin 0.5 AST 19 ALT 7 Alkaline Phosphata se 92 Total Protein 5.8 L Albumin 2.8 L Globulin 3.0 SARS-CoV-2 Ag (Rap id) Negative Vitals: Last Vital Signs Temp 98.3 F 07/17/20 11:32 Pulse 73 07/17/20 11:32 Resp 18 07/17/20 11:32 BP 131/74 07/17/20 11:32 Pulse Ox 94 07/17/20 11:32 Discharge Plan Discharge Patient Disposition: er [facility] Condition: Stable Prescriptions: New cefdinir 300 mg Capsule 300 mg PO BID Qty: 8 RF: 0 pantoprazole 40 mg tablet,delayed release (DR/EC) 40 mg PO BID Qty: 90 RF: 0 polyethylene glycol 3350 17 gram Powder In Packet 17 g PO BID Qty: 60 RF: 0 Lasix 20 mg tablet 20 mg PO DAILY PRN (Reason: edema) Qty: 30 RF: 0 Continued cetirizine 10 mg Tablet 5 mg PO DAILY RF: 0 aspirin [Aspirin Low Dose] 81 mg Tablet,Delayed Release (Dr/Ec) 81 mg PO DAILY RF: 0 carvedilol 3.125 mg Tablet 3.125 mg PO BID RF: 0 levothyroxine 75 mcg Tablet 75 mcg PO DAILY RF: 0 simvastatin 20 mg Tablet 20 mg PO QPM RF: 0 fluticasone prp-sod.chl,bicarb 50 mcg- 0.9 % Kit,Benkelman Suspension And Benkelman See Rx Instructions .ROUTE .COMPLEX RF: 0 ascorbic acid (vitamin C) [C-500] 500 mg Tablet,Chewable 500 mg PO DAILY PRN (Reason: unknown) RF: 0 albuterol sulfate 90 mcg/actuation Hfa Aerosol Inhaler 1 puff INHALATION QID PRN (Reason: Shortness Of Breath) RF: 0 Robafen DM Cough 10 - 100 mg PO Q6H PRN (Reason: Cough) RF: 0 docusate sodium 100 mg Capsule 100 mg PO BID RF: 0 Discharge Orders: Discharge Order (Routine); Ordered 07/17/20 Ordered By: Roly Brown Referrals: [facility] [Outside] Car Gabriel Jr, MD [Primary Care Provider] - 4-7 days (please call Dr Gabriel's office and make an appointment for next week. [phone]) Discharge Diet: Advance as tolerated and Soft Mechanical Discharge Activity: Increase activity as tolerated Patient Instructions: Furosemide (By mouth), Cefdinir (By mouth), Pantoprazole (By mouth), Polyethylene Glycol 3350 (By mouth), Bowel Obstruction (DC) Activity Restrictions/Additional Instructions: Avoid constipation. Recheck hemoglobin in 3 days. Lasix as needed for edema. Consider additional discussion regards to Goals of care and confirmed called status given she does not want any aggressive interventions. Follow-up with oncology regarding increasing lesion in the liver. Discharge Attestations Time Spent in Discharge Care*: greater than 30 min Quality Metrics Clinical Quality Measures During this hospital stay, did patient experience: None Coding Level of Care Code Acute Brand Sales Consultant for [employer] Fwd Diagnoses Partial small bowel obstruction K56.600 Anemia D64.9 Anemia type: unspecified type Leukocytosis D72.829 Thrombocytosis D47.3 UTI (urinary tract infection) N39.0 Metastatic colon cancer to liver C18.9; C78.7 Congestive heart failure I50.9
== END 2020-07-17 13:30 | DRG 811 ==
LOC: ER 16:40 → MEDSURG 17:35
PROVIDERS: Emergency Medicine; Admitting Provider Internal Medicine; PCP Family Medicine; Visit Provider Internal Medicine
DX: D64.9 Anemia, unspecified (principal); I50.23 Acute on chronic systolic (congestive) heart failure; K56.600 Partial intestinal obstruction, unspecified as to cause; N39.0 Urinary tract infection, site not specified; C78.7 Secondary malignant neoplasm of liver and intrahepatic bile duct; C47.3 Malignant neoplasm of peripheral nerves of thorax; D47.3 Essential (hemorrhagic) thrombocythemia; Z90.49 Acquired absence of other specified parts of digestive tract; Z92.21 Personal history of antineoplastic chemotherapy; Z85.038 Personal history of other malignant neoplasm of large intestine; B96.89 Other specified bacterial agents as the cause of diseases classified elsewhere; Z79.82 Long term (current) use of aspirin; I25.10 Atherosclerotic heart disease of native coronary artery without angina pectoris; E03.9 Hypothyroidism, unspecified; Z87.891 Personal history of nicotine dependence; J44.9 Chronic obstructive pulmonary disease, unspecified
CPT/HCPCS: 12345; 36415; 36430; 74177; 80053; 81001; 83605; 83690; 85018; 85025; 86850; 86900; 86920; 87077; 87086; 87186; 87426; 90732; 93306; 93970; 94640; 96375; 99283; C9113; G0378; J0696; J7040; P9016; Q9967

== ENCOUNTER 2020-07-23 16:26 | Outpatient (CLI) | payer MEDICAID, SELFPAY ==
[2020-07-23 17:59] LABS: Estmated Average Glucose 94; Hemoglobin A1C 4.9 % (4.0-6.0)
== END 2020-07-23 16:27 | disposition home or self-care (01) ==
LOC: LAB 16:29
PROVIDERS: PCP Family Medicine; Visit Provider Family Medicine
DX: C18.9 Malignant neoplasm of colon, unspecified (principal)
CPT/HCPCS: 83036

== ENCOUNTER 2020-08-12 09:45 | Outpatient (CLI) | payer MEDICAID, SELFPAY | END 2020-08-12 09:46 | disposition home or self-care (01) | LOC: LAB 08-13 11:07 | PROVIDERS: PCP Family Medicine; Visit Provider Family Medicine | DX: E61.1 Iron deficiency (principal) | CPT/HCPCS: 82274 ==

== ENCOUNTER 2020-10-01 08:39 | Emergency (ER) | payer MEDICAID, SELFPAY ==
[2020-10-01] VITALS (17 sets, daily range): BP systolic 116–149; BP diastolic 45–79; PULSE 20–95; RESP 17–77; TEMP 26.6–37.3; O2SAT 95–99; BMI 23.4
--- NOTE | 2020-10-01 08:46 | XRR_ITS ---
PROCEDURE INFORMATION: Exam: XR Chest, 1 View Exam date and time: 10/01/2020 9:09 AM Age: 85 years old Clinical indication: Shortness of breath; Additional info: Sob/cough TECHNIQUE: Imaging protocol: XR of the chest Views: Frontal portable semiupright view of the chest. COMPARISON: CT Chest/Abdomen/Pelvis w IV* 09/18/2018 2:50 PM FINDINGS: Lungs: Persistent middle lobe partial atelectasis. Interval increase in patchy pulmonary infiltrates in the right mid lung zone. The pulmonary vasculature is normal. Mild right basilar pulmonary subsegmental atelectasis. Pleural space: No pleural effusion. No pneumothorax. Heart/Mediastinum: The heart is normal in size and contour. Mediastinum: Stable. Bones/joints: Stable. XR/XR chest 1V portable [id number] IMPRESSION: 1. Persistent middle lobe partial atelectasis. 2. Interval increase in patchy pulmonary infiltrates in the right mid lung zone. Pneumonitis is difficult to exclude. Clinical correlation is recommended. 3. Mild right basilar pulmonary subsegmental atelectasis.
--- NOTE | 2020-10-01 08:56 | W.ED.GENADLT ---
HPI - General Adult General: Chief complaint: General Medical Stated complaint: BLOOD TRANSFUSION Time Seen by Provider: 10/01/20 08:46 Source: patient and EMS Mode of arrival: EMS Limitations: no limitations History of Present Illness: HPI narrative: 85-year-old pleasant female presents to the emergency department via EMS for blood transfusion. CBC completed 09/29/2020 revealed hemoglobin of 6.2/hematocrit 24.2/platelet count 625,000. CT scan abdomen and pelvis with contrast completed 07/14/2020 revealed mass in the right liver consistent with malignancy. She presents from [facility], nursing staff was contacted to assist with history of present illness. Upon exam, Ms. Ferreira appears short of breath. She reports this is no change from baseline. She denies fever chills. Nursing staff reports shortness of breath has been present and appears slowly worsening. She recently refused her colonoscopy due to concerning CT findings and history of colon cancer. Nursing staff also reports abdominal hernia is enlarging, patient reports hernia is non-tender and not bothersome. History of colon cancer, history of right hemicolectomy 2017, post chemotherapy and currently lives in assisted living. She has declined aggressive care, agreed to come to the facility today only for blood transfusion. She has history of congestive heart failure. She denies nausea vomiting diarrhea. Reports appetite is good. Ms. Ferreira denies pain upon exam. Exacerbating factors: movement Associated symptoms: Reports cough, dyspnea, malaise, short of breath and weakness (chronic); Deny chest pain, confusion, diaphoresis, fevers/chills, headache(s), nausea, rash, palpitations or vomiting Treatments prior to arrival: none Review of Systems General: Reports: 10 or more systems reviewed and unremarkable except in HPI and below Const: Reports: fatigue and malaise; Denies: fever(s), chills or diaphoresis Eyes: Denies: blurry vision, eye discharge, eye redness or seeing flashes ENMT: Denies: throat pain, oral sores, dental pain, halitosis, disequilibrium, nasal discharge or nasal congestion Card: Reports: dyspnea on exertion and orthopnea; Denies: chest pain, palpitations, irregular heart rhythm, edema or swelling of feet/ankles Resp: Reports: dyspnea and non-productive cough; Denies: productive cough, wheezing, pain on inspiration or chest congestion GI: Reports: abdominal pain (with cough, none prensent upon exam); Denies: nausea, vomiting, heartburn, early satiety or pain on defecation : Denies: difficulty voiding, dysuria, urinary urgency or urinary incontinence Musc: Reports: muscle weakness; Denies: neck pain, back pain or extremity pain Skin/Breast: Denies: rash, pruritus, skin tenderness or changes in skin color Neuro: Reports: difficulty walking (due to chronic weakness); Denies: headache(s), weakness in extremities, vertigo, confusion or behavioral changes Psych: Denies: anxiety or depression Jeffy/Lymph: Denies: easy bruising PFSH ED PFSH: Medical History (Updated 10/01/20 @ 15:40 by COLT Dixon) Colon cancer Congestive heart failure Coronary artery disease Hypercholesteremia Hypertension Hypothyroidism Surgical History H/O right hemicolectomy Family History Other No significant family history Social History Smoking and tobacco status: former smoker Alcohol intake: never Lives independently: No Housing: Group Home Marital status: / Physical Exam Const: COMMON NORMALS: patient oriented x3 and alert EXAM LIMITATIONS: physical limitations (chronic weakness) GENERAL APPEARANCE: cooperative, well kempt, well developed and frail appearing; not in distress, not anxious, not disheveled and not lethargic NUTRITIONAL APPEARANCE: thin ORIENTATION/CONSCIOUSNESS: Yes awake, Yes oriented to person, Yes oriented to place and Yes oriented to time; not confused and not lethargic HENMT: COMMON NORMALS: normocephalic, atraumatic, external ears normal, Normal external nose present, Normal nasal mucous membranes and turbinates present and oropharynx normal HEAD & SCALP: normal to inspection, normocephalic and atraumatic FACE & SINUS: sinuses nontender and face symmetric NOSE: Normal external nose present, Normal nasal mucous membranes and turbinates present and No nasal discharge present EXTERNAL EAR: Yes external ears normal MOUTH: moist mucous membranes abnormal (dry) Eye: COMMON NORMALS: Equal, round and reactive pupils present and EOMs intact bilaterally GENERAL EYE: other (sunken eyes) ALIGNMENT: Yes alignment normal EYELID: eyelids normal PUPIL: Yes Equal, round and reactive pupils present Neck/C-Spine: COMMON NORMALS: full ROM and no lymphadenopathy GENERAL: Yes normal visual inspection and Yes trachea midline CERVICAL SPINE: Yes cervical ROM normal Lymph: LYMPHATIC: no lymphadenopathy noted Chest: COMMONS NORMALS: normal inspection of the chest and normal palpation of entire chest wall Resp: EFFORT & INSPECTION: Yes able to speak in complete sentences, Yes symmetric chest movement, Yes tachypneic, No decreased respiratory effort, No pursed lip breathing, Yes labored and Yes uses accessory muscles AUSCULTATION: rhonchi (scattered throughout) Cardio: COMMON NORMALS: regular rate, regular rhythm, S1 normal heart sound present, S2 normal heart sound present and Peripheral pulses 2+ throughout RATE: regular rate RHYTHM: regular rhythm HEART SOUNDS: S1 normal heart sound present and S2 normal heart sound present PERIPHERAL PULSES: Peripheral pulses 2+ throughout GI: COMMON NORMALS: Normal to inspection, nondistended, normoactive bowel sounds present, Soft to palpation and non-tender INSPECTION: Yes normal to inspection, No abdominal wall ecchymosis, No abdominal distension and Yes visible herniation (central lower, soft, non-tender, no erythema) PALPATION: Yes Soft to palpation : COMMON NORMALS: Yes no CVA tenderness BLADDER/KIDNEY EXAM: Yes no CVA tenderness Back/Pelvis: COMMON NORMALS: no CVA tenderness and thoracic and lumbar spine normal to inspection Extremity: COMMON NORMALS: normal to inspection and capillary refill normal Neuro: COMMON NORMALS: patient oriented x3 and no focal motor deficits SENSORIUM/ORIENTATION: Yes alert, Yes oriented to person, Yes oriented to place, Yes oriented to time and No lethargic Psych: COMMON NORMALS: mental status grossly normal, Normal thought process present and cooperative APPEARANCE: Yes well kempt ACTIVITY/MOTOR BEHAVIOR: Yes appropriate eye contact THOUGHT PROCESS: Normal thought process present Skin: COMMON NORMALS: no rashes or lesions noted and turgor normal GENERAL SKIN EXAM: no rashes or lesions noted and turgor normal Course ED course: Pleasant 85-year-old female patient presents to the emergency department due to critical low hemoglobin. Hemoglobin on 09/29/2020 was 6.2. Today is 5.5. She was transfused 2 units of packed cells, premedicated with Benadryl and Tylenol with 20 mg of Lasix between each infusion. She has known liver carcinoma With previous CT scan of the abdomen and pelvis completed July 14, 2020 here at [facility] [place] scan completed today due to profound anemia. Concern for metastatic disease appreciated with increased hepatic metastatic disease, increased wall thickening of the small bowel at the ileocecal anastomosis concerning for tumor recurrence, and right basilar pulmonary nodule concerning for metastatic disease. She is frail, she states did not want to stay in the hospital, would rather be home with her daughter who also resides with her at assisted [facility]. She states does not want to know how long she has to live. has prayed to God that he would heal her cancer. I contacted manager social responsibility along with Scott Aguilar her DPOA. Decision was made to place patient on hospice as she has been a long-term resident at [facility] and they are willing to care for her throughout her disease process. Goal is to keep patient with her daughter as long as possible and to keep her comfortable. She declines further testing and further work-up. blood transfusions has helped her feel better today. She is requesting something to eat, has denied nausea vomiting diarrhea. She will be discharged back to [place] with hospice to visit her tomorrow. She has denied pain through her visit here in the ED. She has tolerated oral fluids well. Advised follow-up with primary care next week. Plan to place on Levaquin due to patchy pulmonary infiltrate in the mid lung possibly early pneumonia vs metastsic process. Vital Signs: Vital signs: Vital Signs Temperature 98.1 F 10/01/20 16:30 Pulse Rate 81 10/01/20 16:30 Respiratory Rate 18 10/01/20 16:30 Blood Pressure 139/74 10/01/20 16:30 Pulse Oximetry 97 10/01/20 16:30 [facility] - General Adult Lab Data: Labs: Lab Results 10/01/20 10/01/20 10/01/20 Range/Units 09:14 09:14 09:14 WBC 12.2 H (4.0-10.0) 10^3/ uL RBC 3.01 L (4.1-5.3) 10^6/u L Hgb 5.5 L* (11.5-15.3) g/dL Hct 21.0 L (37.0-47.0) % MCV 69.8 L (81-99) fL MCH 18.3 L (28.0-34.0) pg MCHC 26.2 L (30.0-36.0) g/dL RDW 17.9 H (12.1-15.1) % Plt Count 605 H (130-400) 10^3/c mm MPV 8.9 (7.4-10.4) fL Neut % (Auto) 56.5 % Lymph % (Auto) 26.2 % Brooks % (Auto) 12.7 % Eos % (Auto) 3.4 % Baso % (Auto) 0.8 % Neut # (Auto) 6.87 (1.8-7.7) 10^3/u L Lymph # (Auto) 3.2 (0.8-4.8) 10^3/u L Brooks # (Auto) 1.5 H (0.2-0.9) 10^3/u L Eos # (Auto) 0.4 (0.0-0.8) 10^3/u L Baso # (Auto) 0.1 (0.0-0.1) 10^3/u L Nucleated RBC % (a uto) 0 % Nucleated RBCs # 0.0 /100WBC Sodium 137 (136-145) mmol/L Potassium 4.0 (3.5-5.1) mmol/L Chloride 104 (98-107) mmol/L Carbon Dioxide 25 (22-29) mmol/L Anion Gap 12.0 (5-19) BUN 19 (8-23) mg/dL Creatinine 0.9 (0.5-0.9) mg/dL GFR Calculation Not Reportable Glucose 99 (65-115) mg/dL Calculated Osmolal ity 286 (285-295) mOsm/k g Lactate (0.5-2.2) mmol/L Calcium 8.0 L (8.5-10.5) mg/dL Total Bilirubin 0.2 (0.15-1.2) mg/dL AST 13 (0-32) U/L ALT < 5 (0-33) U/L Alkaline Phosphata se 110 H (35-105) IU/L Total Protein 6.5 L (6.6-8.7) g/dL Albumin 2.9 L (3.5-5.2) g/dL Globulin 3.6 (1.3-4.6) g/dL Blood Type O Negative Rho(D) Type Negative Antibody Screen Negative Crossmatch See Detail 10/01/20 Range/Units 09:14 WBC (4.0-10.0) 10^3/ uL RBC (4.1-5.3) 10^6/u L Hgb (11.5-15.3) g/dL Hct (37.0-47.0) % MCV (81-99) fL MCH (28.0-34.0) pg MCHC (30.0-36.0) g/dL RDW (12.1-15.1) % Plt Count (130-400) 10^3/c mm MPV (7.4-10.4) fL Neut % (Auto) % Lymph % (Auto) % Brooks % (Auto) % Eos % (Auto) % Baso % (Auto) % Neut # (Auto) (1.8-7.7) 10^3/u L Lymph # (Auto) (0.8-4.8) 10^3/u L Brooks # (Auto) (0.2-0.9) 10^3/u L Eos # (Auto) (0.0-0.8) 10^3/u L Baso # (Auto) (0.0-0.1) 10^3/u L Nucleated RBC % (a uto) % Nucleated RBCs # /100WBC Sodium (136-145) mmol/L Potassium (3.5-5.1) mmol/L Chloride (98-107) mmol/L Carbon Dioxide (22-29) mmol/L Anion Gap (5-19) BUN (8-23) mg/dL Creatinine (0.5-0.9) mg/dL GFR Calculation Glucose (65-115) mg/dL Calculated Osmolal ity (285-295) mOsm/k g Lactate 1.0 (0.5-2.2) mmol/L Calcium (8.5-10.5) mg/dL Total Bilirubin (0.15-1.2) mg/dL AST (0-32) U/L ALT (0-33) U/L Alkaline Phosphata se (35-105) IU/L Total Protein (6.6-8.7) g/dL Albumin (3.5-5.2) g/dL Globulin (1.3-4.6) g/dL Blood Type Rho(D) Type Antibody Screen Crossmatch Imaging Data^: CXR: Radiologist's impression: [facility] [address] [place] [address]. [place] [address] XRay Report Signed Patient: Nayeli Ferreira Unit #: [id number] : 1935 Age/Sex: 85 / F ADM Date: 10/01/20 Loc: ER Room/Bed: Attending Dr: Ordering Provider/Ordering MD: Sammie Laguna Date of Service: 10/01/20 Procedure(s): XR chest 1V portable [id number] Accession Number(s): [id number] Report Number: [id number] PROCEDURE INFORMATION: Exam: XR Chest, 1 View Exam date and time: 10/01/2020 9:09 AM Age: 85 years old Clinical indication: Shortness of breath; Additional info: Sob/cough TECHNIQUE: Imaging protocol: XR of the chest Views: Frontal portable semiupright view of the chest. COMPARISON: CT Chest/Abdomen/Pelvis w IV* 09/18/2018 2:50 PM FINDINGS: Lungs: Persistent middle lobe partial atelectasis. Interval increase in patchy pulmonary infiltrates in the right mid lung zone. The pulmonary vasculature is normal. Mild right basilar pulmonary subsegmental atelectasis. Pleural space: No pleural effusion. No pneumothorax. Heart/Mediastinum: The heart is normal in size and contour. Mediastinum: Stable. Bones/joints: Stable. XR/XR chest 1V portable [id number] IMPRESSION: 1. Persistent middle lobe partial atelectasis. 2. Interval increase in patchy pulmonary infiltrates in the right mid lung zone. Pneumonitis is difficult to exclude. Clinical correlation is recommended. 3. Mild right basilar pulmonary subsegmental atelectasis. Dictated By: Grayson Hickman MD Signed By: Grayson Hickman MD Signed Date/Time: 10/01/20 112 DD/ 1123 CT Abd/Pel: Radiologist's impression: [facility] [address] [place] [id number] Scan Report Signed Patient: Naylei Ferreira #: [id number] : 1935Acct#:[id number] Age/Sex: 85 / FADM Date: 10/01/20 Loc: ERRoom/Bed: Attending Dr: Ordering Provider/Ordering MD: Sammie Laguna Date of Service: 10/01/20 Procedure(s): CT abdomen pelvis w con* [id number] Accession Number(s): [id number] Report Number: [id number] PROCEDURE INFORMATION: Exam: CT Abdomen And Pelvis With Contrast Exam date and time: 10/01/2020 2:13 PM Age: 85 years old Clinical indication: Abdominal pain; Additional info: Liver CA; Low hgb TECHNIQUE: Imaging protocol: Computed tomography of the abdomen and pelvis with intravenous contrast. Radiation optimization: All CT scans at this facility use at least one of these dose optimization techniques: automated exposure control; mA and/or kV adjustment per patient size (includes targeted exams where dose is matched to clinical indication); or iterative reconstruction. Contrast material: OMNI 300; Contrast volume: 95 ml; Contrast route: INTRAVENOUS (IV); COMPARISON: CT abdomen pelvis w con* [id number] 07/14/2020 3:27 PM RADIATION DOSE METRICS: Total DLP (mGy-cm): 279.57 FINDINGS: Lungs: Interval lobulated anterior right lung base pulmonary nodule (series 2, image 3). Liver: Interval increase in size of left lobe lateral hepatic lesion measuring 15.7 mm, previously 13.6 mm. Interval enlargement the right lobe hepatic segment 6 and 7 vas, now measuring 8.7 cm, previously 7.3 cm. Posterior hepatic capsular retraction (series 601, image 52). Gallbladder and bile ducts: A few dependent small gallstones are noted posteriorly in the nondistended gallbladder. No gallbladder wall thickening or pericholecystic fluid identified. Pancreas: Normal. No ductal dilation. Spleen: The spleen demonstrates numerous small calcifications consistent with healed granulomatous disease. Adrenal glands: Normal. No mass. Kidneys and ureters: Left renal upper pole 3.4 cm benign cyst. Stomach and bowel: Right partial colectomy with ileo-ascending anastomosis. Significant wall thickening of the distal small bowel at the ileocolic anastomosis redemonstrated, with interval increase (series 2, image 43). A 7.9 cm paraumbilical hernia containing a portion of the ileocolic anastomosis, without obstruction/strangulation/gangrene. Appendix: Right partial colectomy with ileo-ascending anastomosis. Intraperitoneal space: Mild retro hepatic peritoneal fluid. Vasculature: Marked aortic atherosclerotic calcification without aneurysm. Calcified phleboliths are present in the lower pelvis bilaterally. Lymph nodes: No enlarged lymph nodes. Urinary bladder: Distended urinary bladder. Reproductive: Benign-appearing left adnexal calcifications. Bones/joints: Previous left posterior acetabular orthopedic repair with metallic plate and screws. Bilateral lower lumbar facet primary osteoarthritis. No destructive bony process identified. Partial lumbarization of the S1 vertebral segment, normal variant. Slight L5-S1 anterolisthesis. Soft tissues: Unremarkable. CT/CT abdomen pelvis w con* [id number] IMPRESSION: 1. Right partial colectomy with ileo-ascending anastomosis. 2. Increasing wall thickening distal small bowel at the ileocolic anastomosis concerning for tumor recurrence. 3. Interval increase hepatic metastatic disease. 4. Cholelithiasis. 5. Paraumbilical hernia. 6. Distended urinary bladder. 7. Left renal benign cyst. 8. Interval right basilar pulmonary nodule concerning for metastatic disease. Fleischner Society recommendations not given due to history of neoplasia. COMMENTS: Consistent with the [employer]'s Incidental Findings Committee white paper (J Am Zach Radiol 2018): Any incidental renal lesion less than 1 cm or classified as too small to characterize, or any incidental cystic renal lesion characterized as simple-appearing, is likely benign. No follow-up imaging is recommended for these lesions per consensus recommendations based on imaging criteria. Radiation Dose CTDIVOL = (mGy): DLP = 279.57 (mGy-cm) Dictated By:Grayson Hickman MD Signed By:Grayson Hickman MDSigned Date/Time:10/01/201502 DD/ 150 Discharge Plan Discharge Patient Disposition: Home Clinical Impression: Metastatic adenocarcinoma, Bronchitis Anemia Qualifiers: Anemia type: other cause Other causes of anemia: chronic disease, neoplastic Qualified Code(s): D63.0 - Anemia in neoplastic disease Condition: Stable Prescriptions: New levofloxacin 750 mg tablet 750 mg PO DAILY 7 Days RF: 0 No Action polyethylene glycol 3350 17 gram powder in packet 17 g PO BID@0800,1999 RF: 0 pantoprazole 40 mg tablet,delayed release (DR/EC) 40 mg PO BID@799,1999 RF: 0 cetirizine 10 mg Tablet 5 mg PO DAILY@ RF: 0 aspirin [Aspirin Low Dose] 81 mg Tablet,Delayed Release (Dr/Ec) 81 mg PO DAILY@0800 RF: 0 carvedilol 3.125 mg Tablet 3.125 mg PO BID@ RF: 0 levothyroxine 75 mcg Tablet 75 mcg PO DAILY@0500 RF: 0 fluticasone prp-sod.chl,bicarb 50 mcg- 0.9 % Kit,[place] Suspension And [place] See Rx Instructions .ROUTE .COMPLEX RF: 0 ascorbic acid (vitamin C) [C-500] 500 mg Tablet,Chewable 500 mg PO DAILY PRN (Reason: unknown) RF: 0 albuterol sulfate 90 mcg/actuation Hfa Aerosol Inhaler 1 puff INHALATION QID PRN (Reason: Shortness Of Breath) RF: 0 Robafen DM Cough 10 - 100 mg PO Q6H PRN (Reason: Cough) RF: 0 docusate sodium 100 mg Capsule 100 mg PO BID@ RF: 0 furosemide [Lasix] 20 mg tablet 20 mg PO DAILY PRN (Reason: edema) Qty: 30 RF: 0 Discharge Orders: Discharge ED (Routine); Ordered 10/01/20 Ordered By: Sammie Laguna Referrals: Car Gabriel Jr, MD [Primary Care Provider] - Discharge Diet: GI Soft Discharge Activity: Limit activity as instructed Patient Instructions: Hospice Care, Bacterial Pneumonia (ED), Anemia (ED) Activity Restrictions/Additional Instructions: Hospice will plan to visit you tomorrow Take Levaquin until all gone, even if feeling better Soft diet Return to the emergency department as needed Coding Level of Care Code ED Natural Resource Officer for [employer] Fwd Exam Comprehensive
[2020-10-01 09:31] LABS: Basophils # 0.1 10^3/uL (0.0-0.1); Basophils % 0.8 %; Eosinophils # 0.4 10^3/uL (0.0-0.8); Eosinophils % 3.4 %; Lymphocytes # 3.2 10^3/uL (0.8-4.8); Lymphocytes % 26.2 %; Mean Corpuscular HGB Conc 26.2 g/dL (30.0-36.0); Mean Corpuscular Hemoglobin 18.3 pg (28.0-34.0); Mean Corpuscular Volume 69.8 fL (81-99); Mean Platelet Volume 8.9 fL (7.4-10.4); Monocytes # 1.5 10^3/uL (0.2-0.9); Monocytes % 12.7 %; Neutrophils # 6.87 10^3/uL (1.8-7.7); Neutrophils % 56.5 %; Nucleated Red Blood Cells % 0 %; Platelet Count 605 10^3/cmm (130-400); Red Blood Count 3.01 10^6/uL (4.1-5.3); Red Cell Distribution Width 17.9 % (12.1-15.1); White Blood Count 12.2 10^3/uL (4.0-10.0)
[2020-10-01 09:48] LABS: Alanine Aminotransferase < 5 U/L (0-33); Albumin Level 2.9 g/dL (3.5-5.2); Alkaline Phosphatase 110 IU/L (35-105); Aspartate Amino Transferase 13 U/L (0-32); Blood Urea Nitrogen 19 mg/dL (8-23); Carbon Dioxide 25 mmol/L (22-29); Chloride 104 mmol/L (98-107); Globulin 3.6 g/dL (1.3-4.6); Glucose 99 mg/dL (65-115); Osmolality Calculated 286 mOsm/kg (285-295); Sodium 137 mmol/L (136-145); Total Bilirubin 0.2 mg/dL (0.15-1.2); Total Protein 6.5 g/dL (6.6-8.7)
[2020-10-01 10:29] LABS: Hemoglobin 5.5 g/dL (11.5-15.3)
[2020-10-01] MEDS: diphenhydrAMINE 25 mg Capsule PO (10:46)
[2020-10-01] MEDS: FUROsemide 10 mg/mL SDV 2mL 20 MG IVP (10:49)
[2020-10-01] MEDS: acetaminophen 325 mg Tablet 650 MG PO (10:49)
--- NOTE | 2020-10-01 13:59 | CTR_ITS ---
PROCEDURE INFORMATION: Exam: CT Abdomen And Pelvis With Contrast Exam date and time: 10/01/2020 2:13 PM Age: 85 years old Clinical indication: Abdominal pain; Additional info: Liver CA; Low hgb TECHNIQUE: Imaging protocol: Computed tomography of the abdomen and pelvis with intravenous contrast. Radiation optimization: All CT scans at this facility use at least one of these dose optimization techniques: automated exposure control; mA and/or kV adjustment per patient size (includes targeted exams where dose is matched to clinical indication); or iterative reconstruction. Contrast material: OMNI 300; Contrast volume: 95 ml; Contrast route: INTRAVENOUS (IV); COMPARISON: CT abdomen pelvis w con* [id number] 07/14/2020 3:27 PM RADIATION DOSE METRICS: Total DLP (mGy-cm): 279.57 FINDINGS: Lungs: Interval lobulated anterior right lung base pulmonary nodule (series 2, image 3). Liver: Interval increase in size of left lobe lateral hepatic lesion measuring 15.7 mm, previously 13.6 mm. Interval enlargement the right lobe hepatic segment 6 and 7 vas, now measuring 8.7 cm, previously 7.3 cm. Posterior hepatic capsular retraction (series 601, image 52). Gallbladder and bile ducts: A few dependent small gallstones are noted posteriorly in the nondistended gallbladder. No gallbladder wall thickening or pericholecystic fluid identified. Pancreas: Normal. No ductal dilation. Spleen: The spleen demonstrates numerous small calcifications consistent with healed granulomatous disease. Adrenal glands: Normal. No mass. Kidneys and ureters: Left renal upper pole 3.4 cm benign cyst. Stomach and bowel: Right partial colectomy with ileo-ascending anastomosis. Significant wall thickening of the distal small bowel at the ileocolic anastomosis redemonstrated, with interval increase (series 2, image 43). A 7.9 cm paraumbilical hernia containing a portion of the ileocolic anastomosis, without obstruction/strangulation/gangrene. Appendix: Right partial colectomy with ileo-ascending anastomosis. Intraperitoneal space: Mild retro hepatic peritoneal fluid. Vasculature: Marked aortic atherosclerotic calcification without aneurysm. Calcified phleboliths are present in the lower pelvis bilaterally. Lymph nodes: No enlarged lymph nodes. Urinary bladder: Distended urinary bladder. Reproductive: Benign-appearing left adnexal calcifications. Bones/joints: Previous left posterior acetabular orthopedic repair with metallic plate and screws. Bilateral lower lumbar facet primary osteoarthritis. No destructive bony process identified. Partial lumbarization of the S1 vertebral segment, normal variant. Slight L5-S1 anterolisthesis. Soft tissues: Unremarkable. CT/CT abdomen pelvis w con* [id number] IMPRESSION: 1. Right partial colectomy with ileo-ascending anastomosis. 2. Increasing wall thickening distal small bowel at the ileocolic anastomosis concerning for tumor recurrence. 3. Interval increase hepatic metastatic disease. 4. Cholelithiasis. 5. Paraumbilical hernia. 6. Distended urinary bladder. 7. Left renal benign cyst. 8. Interval right basilar pulmonary nodule concerning for metastatic disease. Fleischner Society recommendations not given due to history of neoplasia. COMMENTS: Consistent with the [employer]'s Incidental Findings Committee white paper (J Am Zach Radiol 2018): Any incidental renal lesion less than 1 cm or classified as too small to characterize, or any incidental cystic renal lesion characterized as simple-appearing, is likely benign. No follow-up imaging is recommended for these lesions per consensus recommendations based on imaging criteria. Radiation Dose CTDIVOL = (mGy): DLP = 279.57 (mGy-cm)
[2020-10-01] MEDS: levoFLOXacin 750 mg Tablet PO (14:06)
[2020-10-01] MEDS: iohexol 300 mg/mL 100 mL Btl IV (14:30)
--- NOTE | 2020-10-01 16:02 | DCPLANNER ---
ER phones and would like assistance with d/c planning and this pt. Media Arts Professor responds. Sammie GREGORY is at bedside. Pt needs hospice, she wants to return to [place] as her daughter lives there with her. Media Arts Professor phones Mr. Chavez Maximo, Pt's Guardian so that Sammie can talk with him. It's decided that pt will return to [place] with hospice being set up tomorrow. Mr. Chavez tells mortgage or loan underwriter to find a hospice company that can work with [place]. Media Arts Professor phones and faxes [facility]. Brian will work on this in the morning. Media Arts Professor tells her that Mr. Chavez will come in and sign any forms needed. Also included his cell number which is not on the pt's admission form. [phone].
--- NOTE | 2020-10-01 18:55 | PC.NURSE ---
ATTEMPTED TO CALL HYPO SPL[employer]ER AND ONLY GOT A BUSY SIGNAL. ATTEMPTED 5 TIMES.
--- NOTE | 2020-10-04 14:19 | DCPLANNER ---
manager medicare marketing had message that patient wanted to speak with hospice. manager medicare marketing called [facility] where patient is living, spoke with sales enablement manager, and was told that hospice was at the facility speaking with patient at this time.
== END 2020-10-01 18:50 | disposition home or self-care (01) ==
PROVIDERS: Emergency Provider Nurse Practitioner Family; PCP Family Medicine
DX: D63.0 Anemia in neoplastic disease (principal); J40 Bronchitis, not specified as acute or chronic; C22.7 Other specified carcinomas of liver; Z85.038 Personal history of other malignant neoplasm of large intestine; I11.0 Hypertensive heart disease with heart failure; I50.9 Heart failure, unspecified; I25.10 Atherosclerotic heart disease of native coronary artery without angina pectoris; Z87.891 Personal history of nicotine dependence; Z79.82 Long term (current) use of aspirin
CPT/HCPCS: 12345; 36430; 71045; 74177; 80053; 83605; 85025; 86850; 86900; 86920; 96374; 99283; 99284; J1940; P9016; Q9967